=== PATIENT | male | born 1975 | race Caucasian/White ===

== ENCOUNTER 2018-10-14 08:33 | Emergency (ER) | payer OTHER ==
[~2018-10-14] VITALS: Ht 193 cm; Wt 131.1 kg
[2018-10-14 09:25] LABS: BASOPHILS # (AUTO) 0.1 10^3/uL (0.0-0.1); BASOPHILS % (AUTO) 1 % (0-10); EOSINOPHILS # (AUTO) 0.2 10^3/uL (0.0-0.3); EOSINOPHILS % (AUTO) 2 % (0-10); HEMATOCRIT 47 % (40-54); HEMOGLOBIN 16.2 G/DL (13.3-17.7); LYMPHOCYTES # (AUTO) 1.3 X 10^3 (1.0-4.0); LYMPHOCYTES % (AUTO) 12 % (12-44); MEAN CORPUSCULAR HEMOGLOBIN 30 PG (25-34); MEAN CORPUSCULAR HGB CONC 34 G/DL (32-36); MEAN CORPUSCULAR VOLUME 88 FL (80-99); MEAN PLATELET VOLUME 8.6 FL (7.4-10.4); MONOCYTES # (AUTO) 1.2 X 10^3 (0.0-1.0); MONOCYTES % (AUTO) 12 % (0-12); NEUTROPHILS # (AUTO) 7.5 X 10^3 (1.8-7.8); NEUTROPHILS % (AUTO) 73 % (42-75); PLATELET COUNT 279 10^3/uL (130-400); RED BLOOD COUNT 5.37 10^6/uL (4.35-5.85); RED CELL DISTRIBUTION WIDTH 12.3 % (10.0-14.5); WHITE BLOOD COUNT 10.2 10^3/uL (4.3-11.0)
[2018-10-14 09:37] LABS: BILIRUBIN,URINE NEGATIVE (NEGATIVE); CLARITY,URINE CLEAR; COLOR,URINE YELLOW; GLUCOSE, URINE (UA) NEGATIVE (NEGATIVE); KETONES,URINE NEGATIVE (NEGATIVE); LEUKOCYTE ESTERASE ,URINE NEGATIVE (NEGATIVE); NITRITE,URINE NEGATIVE (NEGATIVE); PH,URINE 7 (5-9); PROTEIN,URINE 1+ (NEGATIVE); UROBILINOGEN,URINE NORMAL (NORMAL)
[2018-10-14 09:46] LABS: ALANINE AMINOTRANSFERASE 33 U/L (0-55); ALBUMIN 4.3 GM/DL (3.2-4.5); ALKALINE PHOSPHATASE 67 U/L (40-136); BILIRUBIN,TOTAL 0.5 MG/DL (0.1-1.0); BUN/CREATININE RATIO 14; CALCIUM 9.8 MG/DL (8.5-10.1); CARBON DIOXIDE 27 MMOL/L (21-32); CHLORIDE 102 MMOL/L (98-107); CREATININE SERUM 0.87 MG/DL (0.60-1.30); GFR ESTIMATED > 60; GLUCOSE 105 MG/DL (70-105); SODIUM 139 MMOL/L (135-145)
[2018-10-14 09:47] LABS: BACTERIA,URINE NEGATIVE /HPF; HYALINE CASTS, URINE RARE /LPF; RBC,URINE 0-2 /HPF
--- NOTE | 2018-10-14 09:55 | ED Abdominal Pain ---
General Chief Complaint: Abdominal/GI Problems Stated Complaint: ABD PAIN.INJURED AT WORK. Nursing Triage Note: PT CO OF ABD PAIN STATES STARTED HURTING ON L LOWER ABD AND KNOT APPEARED WHEN PULLING WIRES AT WORK LAST WEEK 10/08 STATES HAS BEEN TAKING MOTRIN FOR PAIN BUT WAS PULLING ON WIRES YESTERDAY STATES FELT POP AND KNOT AT AREA HAD GOTTEN LARGER. PT STATES HAS ALSO HAD FEVERS AT NIGHT AT TIMES Sepsis Screen: No Definite Risk Source of Information: Patient Exam Limitations: No Limitations History of Present Illness Date Seen by Provider: Oct 14, 2018 Time Seen by Provider: 08:50 Initial Comments This 43 mg gentleman presents to the emergency room with complaints of left lower quadrant pain. 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 This was a rather strenuous activity. At that time he felt some pain and later noticed some swelling and a lump protruding in the groin area. He has been taking some ibuprofen at home for the pain. Last night he was climbing a ladder and felt a pop and then extreme pain in the same area. He was experiencing nausea associated with the pain. He also reports having a fever the past 2 nights with night sweats. He notes his temperature at home last night was 101.3 and 101.7. He has been having bowel movements daily but states he feels constipated and bloated. He also had dry heaves in the morning. He denies urinary symptoms except for his urine "felt hot" a couple of days ago. This resolved after drinking lots of water. He denies any extension of the symptoms into the scrotum. He has a small open sore in the left inguinal area distal to the bulge. He states he often gets a rash from chafing. He scratched at rash a couple of days ago causing a sore. He denies any expression of pus or exudate. Dr. Wilson is his primary care provider. Allergies and Home Medications Allergies Coded Allergies: No Known Drug Allergies (Unverified , 10/14/18) Home Medications Ondansetron 4 Mg Tab.rapdis, 4 MG SL Q4H PRN for NAUSEA/VOMITING-1ST LINE Prescribed by: TAMIKO SCRUGGS on 10/14/18 1054 Sulfamethoxazole/Trimethoprim 1 Each Tablet, 1 EACH PO BID Prescribed by: TAMIKO SCRUGGS on 10/14/18 1054 Patient Home Medication List Home Medication List Reviewed: Yes Review of Systems Review of Systems Constitutional: see HPI EENTM: No Symptoms Reported Respiratory: No Symptoms Reported Cardiovascular: No Symptoms Reported Gastrointestinal: See HPI Genitourinary: See HPI Musculoskeletal: no symptoms reported Skin: see HPI Psychiatric/Neurological: No Symptoms Reported Hematologic/Lymphatic: No Symptoms Reported Past Hnvhrmv-Vhphow-Otlvcu Hx Past Med/Social Hx: Reviewed and Corrections made Patient Social History Alcohol Use: Regular Use Number of Drinks Today: 0 Alcohol Beverage of Choice: Beer Recreational Drug Use: No Smoking Status: Former Smoker Recent Foreign Travel: No Contact w/Someone Who Travel: No Recent Infectious Disease Expo: No Recent Hopitalizations: No Physical Abuse: No Sexual Abuse: No Seasonal Allergies Seasonal Allergies: Yes Past Medical History Surgeries: Yes (sebaceous cyst from back) Abdominal (colonoscopy), Adenoidectomy, Tonsillectomy Respiratory: No Cardiac: No Neurological: No Genitourinary: No Gastrointestinal: No Musculoskeletal: No Endocrine: No HEENT: No Cancer: No Psychosocial: No Integumentary: No Blood Disorders: No Physical Exam Vital Signs Vital Signs - First Documented 10/14/18 08:40 Temp 98.9 Pulse 88 B/P (MAP) 140/89 (106) Capillary Refill : Less Than 3 Seconds Height/Weight/BMI Height: 6'4.00" Weight: 289lbs. oz. 131.727298uo; BMI Method:Stated General Appearance: WD/WN, no apparent distress HEENT: PERRL/EOMI, normal ENT inspection Neck: normal inspection Respiratory: lungs clear, normal breath sounds, no respiratory distress, no accessory muscle use Cardiovascular: regular rate, rhythm, no edema, no murmur Gastrointestinal: normal bowel sounds, soft, tenderness (palpation of any location on the abdomen produces pain in left lower quadrant. There is a firm bulge in the left inguinal area that does not change with Valsalva. Does not feel reducible.) Extremities: normal inspection, no pedal edema Neurologic/Psychiatric: events traffic controller II-XII nml as tested, no motor/sensory deficits, alert, normal mood/affect, oriented x 3 Skin: normal color, warm/dry, other (ulcerative lesion in the left groin) Focused Exam Lactate Level 10/14/18 10:45: Lactic Acid Level 0.84 Lactic Acid Level Laboratory Tests Test 10/14/18 10:45 Lactic Acid Level 0.84 MMOL/L (0.50-2.00) Progress/Results/Core Measures Results/Orders Lab Results Laboratory Tests Test 10/14/18 09:15 10/14/18 09:22 10/14/18 10:45 Range/Units White Blood Count 10.2 4.3-11.0 10^3/uL Red Blood Count 5.37 4.35-5.85 10^6/uL Hemoglobin 16.2 13.3-17.7 G/DL Hematocrit 47 40-54 % Mean Corpuscular Volume 88 80-99 FL Mean Corpuscular Hemoglobin 30 25-34 PG Mean Corpuscular Hemoglobin Concent 34 32-36 G/DL Red Cell Distribution Width 12.3 10.0-14.5 % Platelet Count 279 130-400 10^3/uL Mean Platelet Volume 8.6 7.4-10.4 FL Neutrophils (%) (Auto) 73 42-75 % Lymphocytes (%) (Auto) 12 12-44 % Monocytes (%) (Auto) 12 0-12 % Eosinophils (%) (Auto) 2 0-10 % Basophils (%) (Auto) 1 0-10 % Neutrophils # (Auto) 7.5 1.8-7.8 X 10^3 Lymphocytes # (Auto) 1.3 1.0-4.0 X 10^3 Monocytes # (Auto) 1.2 H 0.0-1.0 X 10^3 Eosinophils # (Auto) 0.2 0.0-0.3 10^3/uL Basophils # (Auto) 0.1 0.0-0.1 10^3/uL Sodium Level 139 135-145 MMOL/L Potassium Level 4.0 3.6-5.0 MMOL/L Chloride Level 102 98-107 MMOL/L Carbon Dioxide Level 27 21-32 MMOL/L Anion Gap 10 5-14 MMOL/L Blood Urea Nitrogen 12 7-18 MG/DL Creatinine 0.87 0.60-1.30 MG/DL Estimat Glomerular Filtration Rate > 60 BUN/Creatinine Ratio 14 Glucose Level 105 70-105 MG/DL Calcium Level 9.8 8.5-10.1 MG/DL Corrected Calcium 9.6 8.5-10.1 MG/DL Total Bilirubin 0.5 0.1-1.0 MG/DL Aspartate Amino Transf (AST/SGOT) 24 5-34 U/L Alanine Aminotransferase (ALT/SGPT) 33 0-55 U/L Alkaline Phosphatase 67 40-136 U/L C-Reactive Protein High Sensitivity 2.83 H 0.00-0.50 MG/DL Total Protein 8.0 6.4-8.2 GM/DL Albumin 4.3 3.2-4.5 GM/DL Urine Color YELLOW Urine Clarity CLEAR Urine pH 7 5-9 Urine Specific [place] 1.010 L 1.016-1.022 Urine Protein 1+ H NEGATIVE Urine Glucose (UA) NEGATIVE NEGATIVE Urine Ketones NEGATIVE NEGATIVE Urine Nitrite NEGATIVE NEGATIVE Urine Bilirubin NEGATIVE NEGATIVE Urine Urobilinogen NORMAL NORMAL MG/DL Urine Leukocyte Esterase NEGATIVE NEGATIVE Urine RBC (Auto) 1+ H NEGATIVE Urine RBC 0-2 /HPF Urine WBC NONE /HPF Urine Crystals NONE /LPF Urine Bacteria NEGATIVE /HPF Urine Casts PRESENT /LPF Urine Hyaline Casts RARE /LPF Urine Mucus SMALL H /LPF Urine Culture Indicated NO Lactic Acid Level 0.84 0.50-2.00 MMOL/L My Orders Orders - TAMIKO GALLARDO MD Cbc With Automated Diff (10/14/18 09:05) Comprehensive Metabolic Panel (10/14/18 09:05) Hs C Reactive Protein (10/14/18 09:05) Ua Culture If Indicated (10/14/18 09:05) Saline Lock/Iv-Start (10/14/18 09:05) Us Abdomen Limited [id number] (10/14/18 09:05) Blood Culture (10/14/18 10:43) Lactic Acid Analyzer (10/14/18 10:43) Wound Culture (10/14/18 10:43) Ceftriaxone For Iv Use (Rocephin For I (10/14/18 10:45) Ketorolac Injection (Toradol Injection) (10/14/18 10:45) Medications Given in ED Current Medications Medications Dose Ordered Sig/Goran Route Start Time Stop Time Status Last Admin Dose Admin Ceftriaxone Sodium 1000 mg/ Sodium Chloride 50 ml @ 100 mls/hr ONCE ONCE IV 10/14/18 10:45 10/14/18 11:14 DC 10/14/18 11:00 100 MLS/HR Ketorolac Tromethamine 15 mg ONCE ONCE IVP 10/14/18 10:45 10/14/18 10:46 DC 10/14/18 10:55 15 MG Vital Signs/I&O 10/14/18 08:40 Temp 98.9 Pulse 88 B/P (MAP) 140/89 (106) Blood Pressure Mean: 106 Progress Progress Note : Time: 11:00 Progress Note Ultrasound results were consistent with inguinal lymphadenopathy, possibly reactive from infection. Patient does have an ulcerative sore in the left groin distal to the nodes. This is a likely source of infection. Patient did note a measured fever twice last night. He does not show signs of sepsis in the ER. He has no leukocytosis, fever, or tachycardia, but I am concerned about the fever he had last night. As a precaution we will draw blood cultures and collect a wound culture. Rocephin will be given prior to discharge and he will be placed on Bactrim for outpatient therapy. Return precautions are being given and follow-up with Dr. Wilson is advised. Toradol was given for pain control. He was advised not to return to work today due to fever last night. Diagnostic Imaging Diagonstic Imaging: Ultrasound Plain Films/CT/US/NM/MRI: abdomen Comments Ultrasound images viewed by me and report reviewed. Discussed with wildlife technician. See report below: NAME: CALLIE JASSO [facility] REC#: [id number] PT STATUS: REG ER : 1975 PHYSICIAN: TAMIKO GALLARDO MD ADMIT DATE: 10/14/18/ER Draft Date of Exam:10/14/18 US ABDOMEN LIMITED [id number] Exam: Ultrasound abdomen limited. Date: October 14, 2018. Indication: 43-year-old male, left groin pain for one week. Comparison: None available. Findings: Targeted ultrasound of the left inguinal region was performed. There are several hypoechoic probable left inguinal lymph nodes which measure approximately 1.9 x 2.2 x 1.3 cm in size, 2.0 x 2.4 x 1.2 cm in size, and 1.4 x 1.7 x 1.1 cm in size. There is abnormal cortical thickening of some of the lymph nodes without normal lymph node morphology of the inguinal lymph nodes. Impression: 1. Several probable left inguinal lymph nodes which do not demonstrate normal lymph node morphology. Further correlation for cause is recommended. This could be secondary to infection or inflammatory process or malignancy. Dictated on workstation # [id number] Dict: 10/14/18 1022 Trans: 10/14/18 1027 [facility] [id number] Interpreted by: LIVIA MORENO MD Departure Impression Primary Impression: Inguinal lymphadenopathy Additional Impressions: Abdominal pain Qualified Codes: R10.32 - Left lower quadrant pain History of fever Nausea Disposition: 01 HOME, SELF-CARE Condition: Improved Departure-Patient Inst. Decision time for Depature: 10:50 Referrals: HARRISON WILSON MD (PCP/Family) Primary Care Physician Patient Instructions: Acute Abdomen (Belly Pain), Adult (DC), LYMPH NODE INFECTION Add. Discharge Instructions: Complete your antibiotics as prescribed. For pain you may take ibuprofen up to 600 mg every 6 hours as needed. Add Tylenol (acetaminophen) up to 1000 mg every 6 hours as needed for additional pain relief. Follow-up with your primary care provider within one week. Please call today to make an appointment. You should review your culture results with your doctor. Culture results should be available by the afternoon of October 16. Return to the emergency room if you have worsening symptoms, especially if you have recurrent fevers over 100.3 despite treatment. Drink plenty of clear liquids. Use Zofran (ondansetron) as prescribed for nausea and vomiting. All discharge instructions reviewed with patient and/or family. Voiced understanding. Scripts Ondansetron (Ondansetron Odt) 4 Mg Tab.rapdis 4 MG SL Q4H PRN for NAUSEA/VOMITING-1ST LINE, #10 TAB Prov: TAMIKO GALLADRO MD 10/14/18 Sulfamethoxazole/Trimethoprim (Bactrim Ds Tablet) 1 Each Tablet 1 EACH PO BID, #20 TAB Prov: TAMIKO GALLARDO MD 10/14/18 Copy Copies To 1: HARRISON WILSON MD, JOSHUA T MD Oct 14, 2018 09:55
--- NOTE | 2018-10-14 10:28 | Diagnostic Imaging Report ---
Exam: Ultrasound abdomen limited. Date: October 14, 2018. Indication: 43-year-old male, left groin pain for one week. Comparison: None available. Findings: Targeted ultrasound of the left inguinal region was performed. There are several hypoechoic probable left inguinal lymph nodes which measure approximately 1.9 x 2.2 x 1.3 cm in size, 2.0 x 2.4 x 1.2 cm in size, and 1.4 x 1.7 x 1.1 cm in size. There is abnormal cortical thickening of some of the lymph nodes without normal lymph node morphology of the inguinal lymph nodes. Impression: 1. Several probable left inguinal lymph nodes which do not demonstrate normal lymph node morphology. Further correlation for cause is recommended. This could be secondary to infection or inflammatory process or malignancy. Dictated by: Dictated on workstation # [id number]
[2018-10-14] MEDS ORDERED: SULF1TAB35 PO (10:54)
[2018-10-14] MEDS ORDERED: ONDA4TAB11 SL (10:54)
[2018-10-14] MEDS: KETOROLAC 30 MG/ML VIAL IVP ONE (10:55)
[2018-10-14] MEDS: cefTRIAXone FOR IV USE 1,000 MG in NS (IVPB) 50 ML IV ONE (11:00)
[2018-10-14 11:22] VITALS: BP 140/89
== END 2018-10-14 11:22 | disposition home or self-care (01) ==
LOC: ER 08:36
DX: R59.0 Localized enlarged lymph nodes (principal); R10.32 Left lower quadrant pain; R11.0 Nausea; Z87.891 Personal history of nicotine dependence; Z90.89 Acquired absence of other organs
CPT/HCPCS: 36415; 76705; 80053; 81000; 83605; 85025; 86141; 87040; 87070; 87077; 87205

== ENCOUNTER 2022-02-17 11:41 | Emergency (ER) | payer BC, OTHER ==
[~2022-02-17] VITALS: Ht 193 cm; Wt 112.0 kg
[~2022-02-17 11:41] MED LIST: ONDA4TAB11 SL; SULF1TAB38 PO
--- NOTE | 2022-02-17 11:45 | ED Headache ---
General Stated Complaint: MIGRAINE, JAW PAIN History of Present Illness Date Seen by Provider: Feb 17, 2022 Time Seen by Provider: 11:44 Initial Comments 47-year-old male presents with a headache. He reports that started yesterday. Is located on the left lateral aspect of his neck and radiates over over his left eye. It is worse with any type of movement of his neck. He also complains of a little bit of pain in his jaw but is unsure if this related. He also reports that for the last month he has been getting occasional episodes of a little bit of blurry vision. But is not complaining that at this time. He has some mild nausea no vomiting. He denies any acute injury. He did have a recent illness but is not having any respiratory or illness type symptoms at this time. Allergies and Home Medications Allergies Coded Allergies: No Known Drug Allergies (Unverified , 10/14/18) Patient Home Medication List Home Medication List Reviewed: Yes Ondansetron (Ondansetron Odt) 4 Mg Tab.rapdis, 4 MG SL Q4H PRN for NAUSEA/VOMITING-1ST LINE Prescribed by: TAMIKO SCRUGGS on 10/14/18 1054 Sulfamethoxazole/Trimethoprim (Bactrim Ds Tablet) 1 Each Tablet, 1 EACH PO BID Prescribed by: TAMIKO SCRUGGS on 10/14/18 1054 Review of Systems Review of Systems Constitutional: No chills, No fever Eyes: See HPI Ears, Nose, Mouth, Throat: see HPI Respiratory: no symptoms reported Cardiovascular: no symptoms reported Gastrointestinal: no symptoms reported Genitourinary: no symptoms reported Musculoskeletal: see HPI Skin: no symptoms reported Psychiatric/Neurological: No Symptoms Reported Past Natuqeb-Coodgm-Dffnik Hx Seasonal Allergies Seasonal Allergies: Yes Past Medical History Surgeries: Yes (sebaceous cyst from back) Abdominal, Adenoidectomy, Tonsillectomy Respiratory: No Cardiac: No Neurological: No Genitourinary: No Gastrointestinal: No Musculoskeletal: No Endocrine: No HEENT: No Cancer: No Psychosocial: No Integumentary: No Blood Disorders: No Physical Exam Vital Signs Vital Signs - First Documented 02/17/22 11:57 Temp 36.4 Pulse 117 Resp 16 B/P (MAP) 153/108 (123) Pulse Ox 97 O2 Delivery Room Air Capillary Refill : Height, Weight, BMI Height: 6'4.00" Weight: 289lbs. oz. 131.380873cx; BMI Method:Stated General Appearance: WD/WN, no apparent distress HEENT: PERRL/EOMI, normal ENT inspection, TMs normal, pharynx normal Neck: tender lateral (Left lateral paraspinal reproducible) Cardiovascular: normal peripheral pulses, regular rate, rhythm Respiratory: lungs clear, normal breath sounds Gastrointestinal: non tender, soft Extremities: normal range of motion, non-tender, normal inspection Psychiatric: alert, oriented x 3 Crainal Nerves: normal hearing, normal speech, PERRL; No facial weakness Coordination/Gait: normal gait Motor/Sensory: no motor deficit, no sensory deficit, no pronator drift Skin: normal color, warm/dry Progress/Results/Core Measures Results/Orders My Orders Orders - JEREMI RAMIREZ DO Ketorolac Injection (Toradol Injection) (02/17/22 11:51) Orphenadrine Inj (Ed Only) (Norflex Inje (02/17/22 11:51) Ondansetron Oral Dissolve Tab (Zofran (02/17/22 11:51) Ct Head Wo (02/17/22 11:52) Vital Signs/I&O 02/17/22 11:57 Temp 36.4 Pulse 117 Resp 16 B/P (MAP) 153/108 (123) Pulse Ox 97 O2 Delivery Room Air Progress Progress Note : Progress Note Patient symptoms are very consistent with a tension headache/cervical strain v ersus typical migraine. Patient symptoms did improve with Norflex Toradol. I will prescribe him muscle relaxant. Can use Tylenol ibuprofen. Also discussed with him topical medication such as lidocaine and Voltaren cream. Also she use warm moist heat. If symptoms not improved in 3 to 4 days she follow-up with her primary care provider for recheck of his symptoms. Patient CT shows no acute findings and there is no acute neurologic findings on exam Departure Impression Primary Impression: Tension type headache Qualified Codes: G44.209 - Tension-type headache, unspecified, not intractable Disposition: 01 HOME, SELF-CARE Condition: Stable Departure-Patient Inst. Referrals: SELF,HARRISON SAENZ (PCP/Family) Primary Care Physician Patient Instructions: Torticollis (DC), Headache, Adult (DC) Add. Discharge Instructions: Warm moist heat to the back of your neck for 20 minutes, 3-4 times daily 4% topical lidocaine with menthol use as directed on pack Voltaren/diclofenac cream, use as directed on pack Tylenol or ibuprofen as needed. Follow-up with your primary care provider in 1 week if symptoms or not improving Scripts Cyclobenzaprine HCl (Cyclobenzaprine HCl) 10 Mg Tablet 10 MG PO Q8H PRN for SPASMS, #15 TAB 0 Refills Prov: JEREMI RAMIREZ DO 02/17/22 JEREMI RAMIREZ DO Feb 17, 2022 11:45
[2022-02-17] MEDS ORDERED: ORPHENADRINE 60 MG/2 ML (NORFLEX) AMP (ED ONLY) IM STA (11:51)
[2022-02-17] MEDS ORDERED: KETOROLAC 30 MG/ML VIAL IM STA (11:51)
[2022-02-17] MEDS ORDERED: ONDANSETRON 4 MG (ZOFRAN) ORAL DISSOLVE TAB SL STA (11:51)
[2022-02-17 11:57] VITALS: BP 153/108
--- NOTE | 2022-02-17 12:27 | Diagnostic Imaging Report ---
PROCEDURE: CT head without contrast, 02/17/2022. TECHNIQUE: Multiple contiguous axial images were obtained through the brain without the use of intravenous contrast. Auto Exposure Controls were utilized during the CT exam to meet ALARA standards for radiation dose reduction. INDICATION: Headache, blurry vision FINDINGS: There is no hemorrhage or infarct. No mass, mass effect or midline shift. No hydrocephalus. Calvarium is intact. Paranasal sinuses demonstrate mucosal thickening and retention polyp or cyst. Mastoid air cells clear. IMPRESSION: 1. Sinus disease, as above, with no acute intracranial process. Dictated by: Dictated on workstation # [id number]
[2022-02-17] MEDS ORDERED: CYCL10TA25 PO (12:40)
== END 2022-02-17 12:48 | disposition home or self-care (01) ==
LOC: EDUNIT# 11:41 → ER FS 11:42
DX: G44.209 Tension-type headache, unspecified, not intractable (principal)
CPT/HCPCS: 70450

== ENCOUNTER 2023-01-17 07:41 | Day surgery (SDC) | payer BC, MEDICAID ==
[~2023-01-17] VITALS: Ht 193 cm; Wt 114.3 kg
[~2023-01-17 07:41] MED LIST changes: +CYCL10TA25 PO
[2023-01-17] MEDS ORDERED: ASPIRIN 81 MG CHEW (CHILDREN'S ASA) PO ONE (08:00)
[2023-01-17] MEDS ORDERED: NITROGLYCERIN 0.4 MG SL TABS BTL 25'S SL PRN ×2 (08:00→13:00)
[2023-01-17] MEDS ORDERED: morphine INJ 10 MG/ML 1ML (SYR OR VIAL) IVP ONE (08:00)
[2023-01-17 08:06] LABS: BASOPHILS # (AUTO) 0.1 10^3/uL (0.0-0.1); BASOPHILS % (AUTO) 1 % (0-10); EOSINOPHILS # (AUTO) 0.4 10^3/uL (0.0-0.3); EOSINOPHILS % (AUTO) 4 % (0-10); HEMATOCRIT 51 % (40-54); HEMOGLOBIN 17.4 g/dL (13.3-17.7); LYMPHOCYTES # (AUTO) 2.5 10^3/uL (1.0-4.0); LYMPHOCYTES % (AUTO) 25 % (12-44); MEAN CORPUSCULAR HEMOGLOBIN 30 pg (25-34); MEAN CORPUSCULAR HGB CONC 34 g/dL (32-36); MEAN CORPUSCULAR VOLUME 89 fL (80-99); MEAN PLATELET VOLUME 8.6 fL (9.0-12.2); MONOCYTES # (AUTO) 0.9 10^3/uL (0.0-1.0); MONOCYTES % (AUTO) 9 % (0-12); NEUTROPHILS # (AUTO) 6.1 10^3/uL (1.8-7.8); NEUTROPHILS % (AUTO) 61 % (42-75); PLATELET COUNT 293 10^3/uL (130-400)
--- NOTE | 2023-01-17 08:29 | ED Chest Pain ---
General Chief Complaint: Chest Pain Stated Complaint: CHEST PAIN; SOB Source: patient, spouse Exam Limitations: other (pain) History of Present Illness Date Seen by Provider: Jan 17, 2023 Time Seen by Provider: 07:45 Initial Comments 47-year-old male presenting with complaints of intermittent chest pain for the last 2 or 3 days. This morning when he woke up at 7 AM he was having pressure like somebody was sitting on his chest and it was radiating to his left armpit. This pain has been constant since around 7 AM. He rates his pain at 6 or 7 out of 10. He feels like the pain is worse when he tries to sit up and move or take a deep breath. He has had nausea but no vomiting. He denies any injury or event that triggered his symptoms a few days ago. He denies having a history of heart disease or heart problems. He reports that his father had heart disease and had a heart attack at around the age of 60. He has not tried taking anything for his pain or symptoms. patient appears anxious and tearful at times. He reports he almost passed out trying to get into the vehicle to come here and be seen. Timing/Duration: intermittent, 2-3 days Severity/Quality: moderate, pressure Location: other (left chest radiating into left axilla) Radiation: arms (left axilla) Activities at Onset: sleep (this morning his symptoms came on while asleep and woke him up at 7 am) Prior CP/Workup: no prior chest pain, no prior cardiac workup Modifying Factors: worse with exercise (activity makes it worse as well as deep breaths) ASA po [employer]ENTER OFFICER: No NTG SL [employer] CENTER OFFICER: No Associated Symptoms: No abdominal pain, No back pain, No diaphoresis; dizziness; No edema, No fever/chills, No headache, No heartburn; nausea/vomiting (nausea but no emesis); No rash, No shortness of breath, No swelling/lump in chest, No syncope, No weakness Allergies and Home Medications Allergies Coded Allergies: No Known Drug Allergies (Unverified , 10/14/18) Patient Home Medication List Home Medication List Reviewed: Yes Discontinued Medications Cyclobenzaprine HCl (Cyclobenzaprine HCl) 10 Mg Tablet, 10 MG PO Q8H PRN for SPASMS Prescribed by: JEREMI RAMIREZ on 02/17/22 1240 Last Action: Discontinued Ondansetron (Ondansetron Odt) 4 Mg Tab.rapdis, 4 MG SL Q4H PRN for NAUSEA/VOMITING-1ST LINE Prescribed by: TAMIKO SCRUGGS on 10/14/18 105 Last Action: Discontinued Sulfamethoxazole/Trimethoprim (Bactrim Ds Tablet) 1 Each Tablet, 1 EACH PO BID Prescribed by: TAMIKO SCRUGGS on 10/14/18 105 Last Action: Discontinued Review of Systems Review of Systems Constitutional: see HPI; No chills, No fever EENTM: No Symptoms Reported Respiratory: Denies Shortness of Air Cardiovascular: See HPI Gastrointestinal: See HPI Genitourinary: No Symptoms Reported Musculoskeletal: no symptoms reported Skin: no symptoms reported Psychiatric/Neurological: Anxiety Endocrine: No Symptoms Reported Hematologic/Lymphatic: Denies Blood Clots Past Nfculzf-Asmckx-Gfqrle Hx Patient Social History Tobacco Use?: No Use of E-Cig and/or Vaping dev: No Substance use?: No Seasonal Allergies Seasonal Allergies: Yes Past Medical History Surgery/Hospitalization HX: 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 oz. 131.467798ae; 30.00 BMI Method:Stated General Appearance: Anxious, Moderate Distress HEENT: PERRL/EOMI, Pharynx Normal Neck: Full Range of Motion, Normal Inspection, Non Tender, Supple Respiratory: Chest Non Tender, Lungs Clear, Normal Breath Sounds, No Accessory Muscle Use, No Respiratory Distress Cardiovascular: Regular Rate, Rhythm, No Murmur, Normal Peripheral Pulses Gastrointestinal: Normal Bowel Sounds, Non Tender, Soft Rectal: Deferred Extremity: Normal Capillary Refill, Normal Inspection, No Calf Tenderness, No Pedal Edema Neurologic/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, Oriented x3, hand cutter II-XII Norm as Tested Skin: Normal Color, Warm/Dry Progress/Results/Core Measures Results/Orders Lab Results Laboratory Tests Test 01/17/23 07:54 01/17/23 10:00 Range/Units White Blood Count 10.0 4.3-11.0 10^3/uL Red Blood Count 5.73 H 4.30-5.52 10^6/uL Hemoglobin 17.4 13.3-17.7 g/dL Hematocrit 51 40-54 % Mean Corpuscular Volume 89 80-99 fL Mean Corpuscular Hemoglobin 30 25-34 pg Mean Corpuscular Hemoglobin Concent 34 32-36 g/dL Red Cell Distribution Width 11.7 10.0-14.5 % Platelet Count 293 130-400 10^3/uL Mean Platelet Volume 8.6 L 9.0-12.2 fL Immature Granulocyte % (Auto) 0 % Neutrophils (%) (Auto) 61 42-75 % Lymphocytes (%) (Auto) 25 12-44 % Monocytes (%) (Auto) 9 0-12 % Eosinophils (%) (Auto) 4 0-10 % Basophils (%) (Auto) 1 0-10 % Neutrophils # (Auto) 6.1 1.8-7.8 10^3/uL Lymphocytes # (Auto) 2.5 1.0-4.0 10^3/uL Monocytes # (Auto) 0.9 0.0-1.0 10^3/uL Eosinophils # (Auto) 0.4 H 0.0-0.3 10^3/uL Basophils # (Auto) 0.1 0.0-0.1 10^3/uL Immature Granulocyte # (Auto) 0.0 0.0-0.1 10^3/uL Prothrombin Time 13.2 12.2-14.7 SEC INR Comment 1.0 0.8-1.4 Activated Partial Thromboplast Time 30 24-35 SEC D-Dimer 0.28 0.00-0.49 UG/ML Sodium Level 137 135-145 MMOL/L Potassium Level 3.9 3.6-5.0 MMOL/L Chloride Level 100 98-107 MMOL/L Carbon Dioxide Level 25 21-32 MMOL/L Anion Gap 12 5-14 MMOL/L Blood Urea Nitrogen 14 7-18 MG/DL Creatinine 1.02 0.60-1.30 MG/DL Estimat Glomerular Filtration Rate 90 BUN/Creatinine Ratio 14 Glucose Level 109 H 70-105 MG/DL Calcium Level 9.5 8.5-10.1 MG/DL Corrected Calcium 9.3 8.5-10.1 MG/DL Magnesium Level 1.9 1.6-2.4 MG/DL Total Bilirubin 0.5 0.1-1.0 MG/DL Aspartate Amino Transf (AST/SGOT) 36 H 5-34 U/L Alanine Aminotransferase (ALT/SGPT) 58 H 0-55 U/L Alkaline Phosphatase 96 40-136 U/L Myoglobin < 21.0 <72.0 NG/ML Troponin I < 0.30 < 0.30 <0.30 NG/ML Pro-B-Type Natriuretic Peptide 36.1 <125.0 PG/ML Total Protein 7.5 6.4-8.2 GM/DL Albumin 4.3 3.2-4.5 GM/DL Lipase 21 8-78 U/L My Orders Orders - PIYUSH REYES MD Cbc With Automated Diff (01/17/23 07:54) Magnesium (01/17/23 07:54) Chest 1 View Ap/Pa Only (01/17/23 07:54) Ekg Tracing (01/17/23 07:54) Comprehensive Metabolic Panel (01/17/23 07:54) Myoglobin Serum (01/17/23 07:54) Protime With Inr (01/17/23 07:54) Partial Thromboplastin Time (01/17/23 07:54) O2 (01/17/23 07:54) Monitor-Rhythm Ecg Trace Only (01/17/23 07:54) Aspirin Chewable Tablet (Baby Aspirin Ch (01/17/23 08:00) Nitroglycerin 0.4 Mg Btl 25's (Nitrostat (01/17/23 08:00) Ed Iv/Invasive Line Start (01/17/23 07:54) Lipase (01/17/23 07:54) Troponin I Fs (01/17/23 07:54) Probnp Fs (01/17/23 07:54) Morphine Injection (Morphine Injection (01/17/23 08:00) Fibrin Degradation Products (01/17/23 07:54) Fentanyl Inj (Sublimaze Injection) (01/17/23 09:02) Ondansetron Injection (Zofran Injectio (01/17/23 09:02) Ketorolac Injection (Toradol Injection) (01/17/23 09:02) Ct Angio Chest W (01/17/23 09:02) Pantoprazole Injection (Protonix Injecti (01/17/23 09:02) Iohexol Injection (Omnipaque 350 Mg/Ml 1 (01/17/23 09:15) Received Contrast (Hold Metformin- Contr (01/17/23 09:15) Sodium Chloride Flush (Catheter Flush Sy (01/17/23 09:15) Ns (Ivpb) (Sodium Chloride 0.9% Ivpb Bag (01/17/23 09:15) Troponin I Fs (01/17/23 09:47) Fentanyl Inj (Sublimaze Injection) (01/17/23 10:38) Lorazepam Injection (Ativan Injection) (01/17/23 10:38) Ed Admission (Communication) (01/17/23 10:51) Medications Given in ED Current Medications Medications Dose Ordered Sig/Goran Route Start Time Stop Time Status Last Admin Dose Admin Aspirin 324 mg ONCE ONCE PO 01/17/23 08:00 01/17/23 08:01 DC 01/17/23 08:02 324 MG Iohexol 100 ml ONCE ONCE IV 01/17/23 09:15 01/17/23 09:16 DC 01/17/23 09:21 100 ML Morphine Sulfate 2 mg ONCE ONCE IVP 01/17/23 08:00 01/17/23 08:01 DC 01/17/23 08:03 2 MG Nitroglycerin 0.4 mg UD PRN SL 01/17/23 08:00 01/17/23 08:13 0.4 MG Sodium Chloride 100 ml ONCE ONCE IV 01/17/23 09:15 01/17/23 09:16 DC 01/17/23 09:21 100 ML Vital Signs/I&O 01/17/23 07:45 Temp 36.5 Pulse 98 Resp 12 B/P (MAP) 158/98 (118) O2 Delivery Room Air Progress Progress Note #1: Progress Note Potential life-threatening diagnosis of myocardial infarction, pulmonary embolism, pneumonia, dissecting thoracic aortic aneurysm, pneumonia, heart failure. Obtain peripheral IV access and obtain blood work for a complete blood count, comprehensive metabolic profile, cardiac enzymes, clotting factors, D-dimer. Placed on cardiac night monitor to watch his heart rate and rhythm. My initial interpretation of his cardiac telemetry shows normal sinus rhythm with a heart rate in the 90s. He does not have ST elevation or ectopy showing on the monitor. Obtain electrocardiogram for more formal evaluation of his heart. My initial interpretation of his electrocardiogram showed a normal sinus rhythm without ST elevation or ischemic changes. There is no prior tracing available for comparison. Order chest x-ray looking for structural abnormalities or physical findings that could be contributing to his symptoms. Order aspirin 324 mg p.o. x1, morphine 2 mg IV x1 for chest pain, Zofran 4 mg IV for nausea, sublingual nitroglycerin 0.4 mg for chest pain. After ordering the nitroglycerin, patient and spouse told the nurse that he had used Viagra 2-3 days ago and they were concerned about interaction between Viagra and Nitroglycerin. I advised the nurse that since he has had more than 24 hours since he used the Viagra it should be out of his system and not interacting with nitroglycerin. I felt is was safe to administer the medicine to see if it helped with his pain and symptoms. Progress Note #2: Time: 08:28 Progress Note My personal interpretation and review of the 1 view chest x-ray shows no acute process. I did not appreciate an infiltrate, widened mediastinum, pleural effusion, cardiomegaly. Complete blood count showed his white blood cells were not elevated to indicate an infection. Has hemoglobin was 17.4 and not showing signs of anemia. His comprehensive metabolic profile did not show acute significant abnormality to account for his symptoms. He had a troponin that was less than 0.3 to help discount a diagnosis of myocardial infarction or cardiac ischemia. He had a myoglobin that was less than 21 which again would help to count against myocardial source for his pain. Especially considering intermittent pain for the last 2 to 3 days and then having constant pain since 7 AM. Awaiting coagulation factors and D-dimer to help screen for coagulopathy and possible DVT or pulmonary embolism. Progress Note #3: Time: 08:44 Progress Note Coagulation factors were elevated to indicate a coagulopathy. His D-dimer was negative as a screening test looking for DVT or PE as it was 0.28 and not elevated over 0.5. Will recheck on patient and see if any of the treatments so far have made any difference on his pain and symptoms. On recheck of the patient he reports the pain was still present and was worse still with deep breaths. He asked if there was anything else he could get for pain. Will order Fentanyl 50 mcg IV for pain, Toradol 15 mg IV for pain/inflammation, Zofran 4 mg IV for nausea, Pantoprazole 40 mg IV for possible gastritis. Add on CT angiography of chest to evaluate for possible structural pathology to cause his symptoms. While the negative D dimer has helped to screen for DVT/PE and it was negative, the CT angiography of chest will help evaluate for PE, Aorta dissection, infiltrate not seen on CXR. Will repeat Troponin at 2 hours to see if there is any change in his lab value from the initial <0.3 negative Troponin. Progress Note #4: Time: 09:47 Progress Note Patient reports mild improvement in his symptoms with the repeated pain medicine and Ativan. He states that as symptoms are only improved for very short time and then come back again. He states they have never completely gone away. Reassured patient that his test results were not showing any signs of acute heart attack, pulmonary embolism in his chest, pneumonia, aortic aneurysm or dissection. He was still complaining of pain so the repeat troponin was ordered and will discuss with Dr. Jasso, the on-call hospitalist for [facility] for Dr. Wilson. 1047 Repeat troponin still negative at <0.3. Reassured pt that his tests were not showing pulmonary embolism, aortic dissection or aneurysm, myocardial infarction, structural abnormality or pneumonia. Since he was still having pain I discussed this case with Dr. Cannon, the on-call hospitalist for [facility] for Dr. Wilson. She accepted the patient for an observation admission after I reviewed his presentation as well as his labs which included negative troponin x2 and negative chest x-ray and CT angiography scan of the chest. Will admit as an observation patient and possibly consult cardiology for his chest pains. Initial ECG Impression Date: Jan 17, 2023 Initial ECG Impression Time: 07:47 Initial ECG Rate: 96 Initial ECG Rhythm: Normal Sinus Initial ECG Comparisson: No Previous ECG Available Comment My initial interpretation of the electrocardiogram shows sinus rhythm with a heart rate of [address] elevation. NC interval 165 ms. QT interval 362 ms with a QTc interval 415 ms. There is no prior tracing available for comparison. Diagnostic Imaging Diagonstic Imaging: Xray Plain Films/CT/US/NM/MRI: chest Comments [facility]. [place], [place] NAME: CALLIE JASSO [facility] REC#: [id number] PT STATUS: REG ER : 1975 PHYSICIAN: PIYUSH REYES MD ADMIT DATE: 01/17/23/ER FS Draft Date of Exam:01/17/23 CHEST 1 VIEW AP/PA ONLY INDICATION: Chest pain, FINDINGS: No priors Lungs clear. No failure, effusion or pneumothorax. Impression: Normal frontal chest. Dictated on workstation # [id number] Dict: 01/17/23831 Trans: 01/17/23832 [facility] [id number] Interpreted by: GAVIN MITCHELL Electronically signed by: Reviewed: Reviewed by Me (I reviewed radiologist results at 0838) Diagonstic Imaging: CT (angiography) Plain Films/CT/US/NM/MRI: chest Comments NAME: CALLIE JASSO [facility] REC#: [id number] PT STATUS: REG ER : 1975 PHYSICIAN: PIYUSH REYES MD ADMIT DATE: 01/17/23/ER FS Draft Date of Exam:01/17/23 CT ANGIO CHEST W PROCEDURE: CT angiography of the chest with contrast. TECHNIQUE: Multiple contiguous axial images were obtained through the chest after uneventful bolus administration of intravenous contrast. 3D reconstructed CTA MIP acquisitions were also performed. Auto Exposure Controls were utilized during the CT exam to meet ALARA standards for radiation dose reduction. INDICATION: Chest pain. I have no relevant comparison. FINDINGS: There are no intraluminal pulmonary arterial filling defects. There are no findings of pulmonary arterial embolic disease. Thoracic aorta patent and nonaneurysmal and nonacute. No pleural or pericardial hemorrhage or effusion. Lungs clear and well expanded. No edema or pneumonia. No lung mass. No thoracic adenopathy. No acute or suspicious soft tissue or osseous chest wall pathology. There is no axillary, hilar or mediastinal lymphadenopathy. The visible upper abdominal structures appeared unremarkable. IMPRESSION: Negative for PE or other acute abnormalities. Dictated on workstation # [id number] Dict: 01/17/23 0935 Trans: 01/17/23 0938 [id number] Interpreted by: GAVIN MITCHELL Electronically signed by: Reviewed: Reviewed by Me (I reviewed radiologist report at 0947) Departure Communication (Admissions) Time/Spoke to Admitting Phy: 10:[address] Jasso and reviewed the patient's presentation as well as his labs which included troponin negative x2 as well as a CT angiography of the chest which was not showing any acute pulmonary embolism or aortic dissection. He continues to have pain despite multiple medications including aspirin, morphine, nitroglycerin, Toradol, fentanyl, Protonix, repeated dose of fentanyl as well as Ativan. She accepted the patient for an observation stay and possible cardiology consult. Impression Primary Impression: Pleuritic chest pain Additional Impression: Atypical chest pain Disposition: 30 STILL A PATIENT Condition: Stable Admissions Decision to Admit Reason: Admit from ER (General) Decision to Admit/Date: Jan 17, 2023 Time/Decision to Admit Time: 10:47 Departure-Patient Inst. Referrals: HARRISON WILSON MD (PCP) Primary Care Physician PIYUSH REYES MD Jan 17, 2023 08:29
[2023-01-17 08:34] LABS: POTASSIUM 3.9 MMOL/L (3.6-5.0); SODIUM 137 MMOL/L (135-145)
--- NOTE | 2023-01-17 08:34 | Diagnostic Imaging Report ---
INDICATION: Chest pain, FINDINGS: No priors Lungs clear. No failure, effusion or pneumothorax. Impression: Normal frontal chest. Dictated by: Dictated on workstation # [id number]
[2023-01-17 08:35] LABS: BILIRUBIN,TOTAL 0.5 MG/DL (0.1-1.0); BUN/CREATININE RATIO 14; CALCIUM 9.5 MG/DL (8.5-10.1); CARBON DIOXIDE 25 MMOL/L (21-32); CHLORIDE 100 MMOL/L (98-107); CREATININE SERUM 1.02 MG/DL (0.60-1.30); GFR ESTIMATED 90; GLUCOSE 109 MG/DL (70-105); MAGNESIUM 1.9 MG/DL (1.6-2.4)
[2023-01-17 08:36] LABS: ALANINE AMINOTRANSFERASE 58 U/L (0-55); ALKALINE PHOSPHATASE 96 U/L (40-136)
[2023-01-17 08:37] LABS: ALBUMIN 4.3 GM/DL (3.2-4.5); LIPASE 21 U/L (8-78); TOTAL PROTEIN 7.5 GM/DL (6.4-8.2)
[2023-01-17 08:38] LABS: FIBRIN DEGRADATION PRODUCTS 0.28 UG/ML (0.00-0.49); PROTHROMBIN TIME PATIENT 13.2 SEC (12.2-14.7)
[2023-01-17] MEDS ORDERED: KETOROLAC 15 MG/ML VIAL IVP STA (09:02)
[2023-01-17] MEDS ORDERED: ONDANSETRON 4 MG/2 ML (SDV) Z0FRAN IVP STA (09:02)
[2023-01-17] MEDS ORDERED: PANTOPRAZOLE 40 MG (PROTONIX) VIAL IV STA (09:02)
[2023-01-17] MEDS ORDERED: fentaNYL INJ 100 MCG/2 ML AMP IVP STA ×2 (09:02→10:38)
[2023-01-17] MEDS ORDERED: NS 100 ML (IVPB) BAG IV ONE (09:15)
[2023-01-17] MEDS ORDERED: CATHETER FLUSH 10 ML SYR IV PRN (09:15)
[2023-01-17] MEDS ORDERED: HOLD METFORMIN - RECEIVED CONTRAST 20 ML VIAL IV SCH (09:15)
[2023-01-17] MEDS ORDERED: IOHEXOL 350 MG/ML 100 ML (OMNIPAQUE 350) VIAL IV ONE (09:15)
--- NOTE | 2023-01-17 09:38 | Diagnostic Imaging Report ---
PROCEDURE: CT angiography of the chest with contrast. TECHNIQUE: Multiple contiguous axial images were obtained through the chest after uneventful bolus administration of intravenous contrast. 3D reconstructed CTA MIP acquisitions were also performed. Auto Exposure Controls were utilized during the CT exam to meet ALARA standards for radiation dose reduction. INDICATION: Chest pain. I have no relevant comparison. FINDINGS: There are no intraluminal pulmonary arterial filling defects. There are no findings of pulmonary arterial embolic disease. Thoracic aorta patent and nonaneurysmal and nonacute. No pleural or pericardial hemorrhage or effusion. Lungs clear and well expanded. No edema or pneumonia. No lung mass. No thoracic adenopathy. No acute or suspicious soft tissue or osseous chest wall pathology. There is no axillary, hilar or mediastinal lymphadenopathy. The visible upper abdominal structures appeared unremarkable. IMPRESSION: Negative for PE or other acute abnormalities. Dictated by: Dictated on workstation # [id number]
[2023-01-17] MEDS ORDERED: LORazepam INJ 2 MG/ML (ATIVAN) VIAL IVP STA (10:38)
[2023-01-17 12:48] VITALS: BP 148/83
[2023-01-17] MEDS ORDERED: diphenhydrAMINE 50 MG/ML INJ (BENADRYL) IVP PRN (13:00)
[2023-01-17] MEDS ORDERED: BISACODYL 10 MG SUPP (DULCOLAX) PR PRN (13:00)
[2023-01-17] MEDS ORDERED: polyethylene glycoL POWDER 17 GM (MIRALAX) PACK PO PRN (13:00)
[2023-01-17] MEDS ORDERED: ALPRAZolam 0.5 MG (XANAX) TAB PO PRN (13:00)
[2023-01-17] MEDS ORDERED: PATIENT MAY USE OWN MEDS, ALL PO SCH (13:00)
[2023-01-17] MEDS ORDERED: ONDANSETRON 4 MG (ZOFRAN) ORAL DISSOLVE TAB PO PRN (13:00)
[2023-01-17] MEDS ORDERED: ENOXAPARIN 40 MG/0.4 ML (LOVENOX) SYR SC SCH (13:00)
[2023-01-17] MEDS ORDERED: ACETAMINOPHEN 325 MG TABLET PO PRN (13:00)
[2023-01-17] MEDS ORDERED: ANTACID SUSP 30 ML UDC (MYLANTA) PO PRN (13:00)
[2023-01-17] MEDS ORDERED: diphenhydrAMINE 25 MG TAB (BENADRYL) PO PRN (13:00)
[2023-01-17] MEDS ORDERED: MELATONIN 3 MG TABLET PO PRN (13:00)
[2023-01-17] MEDS ORDERED: ONDANSETRON 4 MG/2 ML (SDV) Z0FRAN IV PRN (13:00)
[2023-01-17 13:25] VITALS: BP 149/89
[2023-01-17] MEDS: HYDROmorphone 2 MG/ML VIAL (DILAUDID) IV PRN ×3 (13:46→22:45)
[2023-01-17] MEDS ORDERED: IBUP-2185 PO (15:46)
[2023-01-17] MEDS ORDERED: SILD100T PO (15:46)
[2023-01-17 16:19] VITALS: BP 133/69
--- NOTE | 2023-01-17 17:21 | Consultation-Cardiology ---
HPI-Cardiology Cardiology Consultation Date of Consultation 01/17/23 Date of Admission Time Seen by Provider: 17:19 Indication: Chest pain HPI 47 years old gentleman with no significant past medical history, has been having recurrent chest pain and left arm pain on and off for the past 3 to 4 days. This morning had more significant chest pain on the retrosternal area radiating to his neck. No shortness of breath. No palpitation, patient came into the emergency room for evaluation. On my evaluation he was laying in bed, having retrosternal chest pain. Home Medications & Allergies Allergies: Coded Allergies: zolpidem (Verified Allergy, Unknown, 01/17/23) Home Medication List Reviewed: Yes EQR-Ccyhxo-Beznie Hx Patient Social History Marital Status: Employed/Student: employed Smoking Status: Former Smoker Recent Hopitalizations: No Have you traveled recently?: No Alcohol Use?: Yes Past Medical History Discussed below Family Medical History Family Medical Hx Father has history of heart disease Review of Systems-General Review of Systems Constitutional: see HPI; No chills, No fever EENTM: see HPI, no symptoms reported Respiratory: no symptoms reported, see HPI Cardiovascular: see HPI, chest pain Gastrointestinal: no symptoms reported, see HPI Genitourinary: no symptoms reported, see HPI Musculoskeletal: no symptoms reported Skin: no symptoms reported Psychiatric/Neurological: Anxiety Reviewed Test Results Reviewed Test Results Lab Laboratory Tests Test 01/17/23 07:54 01/17/23 10:00 Range/Units White Blood Count 10.0 4.3-11.0 10^3/uL Red Blood Count 5.73 H 4.30-5.52 10^6/uL Hemoglobin 17.4 13.3-17.7 g/dL Hematocrit 51 40-54 % Mean Corpuscular Volume 89 80-99 fL Mean Corpuscular Hemoglobin 30 25-34 pg Mean Corpuscular Hemoglobin Concent 34 32-36 g/dL Red Cell Distribution Width 11.7 10.0-14.5 % Platelet Count 293 130-400 10^3/uL Mean Platelet Volume 8.6 L 9.0-12.2 fL Immature Granulocyte % (Auto) 0 % Neutrophils (%) (Auto) 61 42-75 % Lymphocytes (%) (Auto) 25 12-44 % Monocytes (%) (Auto) 9 0-12 % Eosinophils (%) (Auto) 4 0-10 % Basophils (%) (Auto) 1 0-10 % Neutrophils # (Auto) 6.1 1.8-7.8 10^3/uL Lymphocytes # (Auto) 2.5 1.0-4.0 10^3/uL Monocytes # (Auto) 0.9 0.0-1.0 10^3/uL Eosinophils # (Auto) 0.4 H 0.0-0.3 10^3/uL Basophils # (Auto) 0.1 0.0-0.1 10^3/uL Immature Granulocyte # (Auto) 0.0 0.0-0.1 10^3/uL Prothrombin Time 13.2 12.2-14.7 SEC INR Comment 1.0 0.8-1.4 Activated Partial Thromboplast Time 30 24-35 SEC D-Dimer 0.28 0.00-0.49 UG/ML Sodium Level 137 135-145 MMOL/L Potassium Level 3.9 3.6-5.0 MMOL/L Chloride Level 100 98-107 MMOL/L Carbon Dioxide Level 25 21-32 MMOL/L Anion Gap 12 5-14 MMOL/L Blood Urea Nitrogen 14 7-18 MG/DL Creatinine 1.02 0.60-1.30 MG/DL Estimat Glomerular Filtration Rate 90 BUN/Creatinine Ratio 14 Glucose Level 109 H 70-105 MG/DL Calcium Level 9.5 8.5-10.1 MG/DL Corrected Calcium 9.3 8.5-10.1 MG/DL Magnesium Level 1.9 1.6-2.4 MG/DL Total Bilirubin 0.5 0.1-1.0 MG/DL Aspartate Amino Transf (AST/SGOT) 36 H 5-34 U/L Alanine Aminotransferase (ALT/SGPT) 58 H 0-55 U/L Alkaline Phosphatase 96 40-136 U/L Myoglobin < 21.0 <72.0 NG/ML Troponin I < 0.30 < 0.30 <0.30 NG/ML Pro-B-Type Natriuretic Peptide 36.1 <125.0 PG/ML Total Protein 7.5 6.4-8.2 GM/DL Albumin 4.3 3.2-4.5 GM/DL Lipase 21 8-78 U/L Physical Exam Physical Exam Vital Signs Vital Signs - First Documented 01/17/23 01/17/23 07:45 11:34 Temp 36.5 Pulse 98 Resp 12 B/P (MAP) 158/98 (118) Pulse Ox 100 O2 Delivery Room Air Capillary Refill : Less Than 3 Seconds Height, Weight, BMI Height: 6'4.00" Weight: 289lbs. oz. 131.832640hy; 30.68 BMI Method:Stated General Appearance: Anxious, Moderate Distress HEENT: PERRL/EOMI, Pharynx Normal Neck: Full Range of Motion, Normal Inspection, Non Tender, Supple Respiratory: Chest Non Tender, Lungs Clear, Normal Breath Sounds, No Accessory Muscle Use, No Respiratory Distress Cardiovascular: Regular Rate, Rhythm, No Murmur, Normal Peripheral Pulses Gastrointestinal: Normal Bowel Sounds, Soft, Tenderness (Epigastric and right upper quadrant) Rectal: Deferred Extremity: Normal Capillary Refill, Normal Inspection, No Calf Tenderness, No Pedal Edema Neurologic/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, 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 Still having pain. On examination he has reproducible epigastric and right upper quadrant pain. We will consult general surgery for evaluation. Maintained on fentanyl and Protonix. Patient is n.p.o. after midnight, after the GI work-up I will consider doing stress test Family history of heart disease. Twelve-lead EKG showing sinus rhythm with no acute abnormality History of alcoholism. Clinical Quality Measures AMI/AHF: ASA po Prior to arrival: SEBASTIAN Carreon MD Jan 17, 2023 17:21
--- NOTE | 2023-01-17 18:42 | Consultation - Surgery ---
GOKUL OLGUIN 01/17/23 1842: History of Present Illness History of Present Illness Patient Consulted On(claudia/time) 01/17/23 18:29 Date Seen by Provider: Jan 17, 2023 Time Seen by Provider: 18:29 Reason for Visit: Chest pain History of Present Illness Sg Downey is a 47yo nonsmoker male who drinks a 6pack of beer and 2 shots of liquor daily. Pt has been having intermittent chest pain for past 2-3 days and presented to [facility] due to severe crushing chest pain radiation to back, left arm, and jaw that began this morning around 7:15am. Pt has a history of PTSD that has caused similar symptoms in the past, but those symptoms typically go away quickly unlike what he has experienced today. Pt states pain is primarily located in his chest midline, and w/ palpation midline and right sided abdominal pain. Chest pain worsens w/ deep inspiration and improves with pain medication; at rest abdominal pain is characterized as a tightness in the epigasatric region, and w/ palpation he experienced deep sharp pain. Surgery was consulted due to Epigastric and RUQ pain concerning for pathology of gallbladder that was noticed by Dr. Yanes during abdominal palpation Allergies and Home Medications Allergies Coded Allergies: zolpidem (Verified Allergy, Unknown, 01/17/23) Patient Home Medication List Ibuprofen (Ibuprofen) 200 Mg Capsule, 400-600 MG PO Q8H PRN for PAIN-MILD (1-4), (Reported) Entered as Reported by: KARLO DUPREE on 01/17/23 1546 Last Action: Reviewed Sildenafil Citrate (Viagra) 100 Mg Tablet, 100 MG PO UD PRN for ED, (Reported) Entered as Reported by: KARLO DUPREE on 01/17/23 1546 Last Action: Reviewed Discontinued Medications Cyclobenzaprine HCl (Cyclobenzaprine HCl) 10 Mg Tablet, 10 MG PO Q8H PRN for SPASMS Prescribed by: JEREMI RAMIREZ on 02/17/22 1240 Last Action: Discontinued Ondansetron (Ondansetron Odt) 4 Mg Tab.rapdis, 4 MG SL Q4H PRN for NAUSEA/VOMITING-1ST LINE Prescribed by: TAMIKO SCRUGGS on 10/14/18 1054 Last Action: Discontinued Sulfamethoxazole/Trimethoprim (Bactrim Ds Tablet) 1 Each Tablet, 1 EACH PO BID Prescribed by: TAMIKO SCRUGGS on 10/14/18 1054 Last Action: Discontinued Past Mcifsou-Eqivqn-Figdxy Hx Patient Social History Smoking Status: Former Smoker Recent Hopitalizations: No Alcohol Use?: Yes (6pack + 2 shots daily ) Have you traveled recently?: No Seasonal Allergies Seasonal Allergies: Yes Surgeries History of Surgeries: Yes (sebaceous cyst from back) Surgeries: Abdominal, Adenoidectomy, Tonsillectomy Respiratory History of Respiratory Disorde: No Cardiovascular History of Cardiac Disorders: No Neurological History of Neurological Disord: No Genitourinary History of Genitourinary Disor: No Gastrointestinal History of Gastrointestinal Di: No Musculoskeletal History of Musculoskeletal Dis: No Endocrine History of Endocrine Disorders: No HEENT History of HEENT Disorders: No Cancer History of Cancer: No Psychosocial History of Psychiatric Problem: Yes Behavioral Health Disorders: PTSD Integumentary History of Skin or Integumenta: No Blood Transfusions History of Blood Disorders: No Review of Systems-General Constitutional: No chills, No fever EENTM: other (Jaw tightness); No hearing loss Respiratory: No cough; short of breath Cardiovascular: chest pain, palpitations Gastrointestinal: abdominal pain (Epigastric, RUQ, RLQ), nausea; No vomiting Genitourinary: No dysuria, No frequency Musculoskeletal: back pain, muscle pain (Left Arm Pain ) Skin: No change in color, No change in hair/nails Psychiatric/Neurological: Anxiety, Numbness (Left Arm), Tingling (Left Arm) Physical Exam-General Problems Physical Exam Vital Signs Vital Signs - First Documented 01/17/23 01/17/23 07:45 11:34 Temp 36.5 Pulse 98 Resp 12 B/P (MAP) 158/98 (118) Pulse Ox 100 O2 Delivery Room Air Capillary Refill : Less Than 3 Seconds General Appearance: no apparent distress HEENT: PERRL/EOMI Neck: non-tender, supple Respiratory: lungs clear, normal breath sounds Cardiovascular: regular rate, rhythm, no JVD, no murmur Peripheral Pulses: 2+ Radial Pulses (R), 2+ Radial Pulses (L) Gastrointestinal: normal bowel sounds, soft, tenderness (Abdominal pain located more in Midline Epigastric region ; RUQ and RLQ pain not as significant) Extremities: no pedal edema, no calf tenderness Neurologic/Psychiatric: alert, normal mood/affect, oriented x 3 Skin: normal color, warm/dry Lymphatic: no adenopathy Data Review Labs Laboratory Tests 01/17/23 07:54: White Blood Count 10.0, Red Blood Count 5.73H, Hemoglobin 17.4, Hematocrit 51, Mean Corpuscular Volume 89, Mean Corpuscular Hemoglobin 30, Mean Corpuscular Hemoglobin Concent 34, Red Cell Distribution Width 11.7, Platelet Count 293, Mean Platelet Volume 8.6L, Immature Granulocyte % (Auto) 0, Neutrophils (%) (Auto) 61, Lymphocytes (%) (Auto) 25, Monocytes (%) (Auto) 9, Eosinophils (%) (Auto) 4, Basophils (%) (Auto) 1, Neutrophils # (Auto) 6.1, Lymphocytes # (Auto) 2.5, Monocytes # (Auto) 0.9, Eosinophils # (Auto) 0.4H, Basophils # (Auto) 0.1, Immature Granulocyte # (Auto) 0.0, Prothrombin Time 13.2, INR Comment 1.0, Activated Partial Thromboplast Time 30, D-Dimer 0.28, Sodium Level 137, Potassium Level 3.9, Chloride Level 100, Carbon Dioxide Level 25, Anion Gap 12, Blood Urea Nitrogen 14, Creatinine 1.02, Estimat Glomerular Filtration Rate 90, BUN/Creatinine Ratio 14, Glucose Level 109H, Calcium Level 9.5, Corrected Calcium 9.3, Magnesium Level 1.9, Total Bilirubin 0.5, Aspartate Amino Transf (AST/SGOT) 36H, Alanine Aminotransferase (ALT/SGPT) 58H, Alkaline Phosphatase 96, Myoglobin < 21.0, Troponin I < 0.30, Pro-B-Type Natriuretic Peptide 36.1, Total Protein 7.5, Albumin 4.3, Lipase 21 01/17/23 10:00: Troponin I < 0.30 Radiology CHEST 1 VIEW AP/PA ONLY INDICATION: Chest pain, FINDINGS: No priors Lungs clear. No failure, effusion or pneumothorax. Impression: Normal frontal chest. Date of Exam:01/17/23 CT ANGIO CHEST W PROCEDURE: CT angiography of the chest with contrast. TECHNIQUE: Multiple contiguous axial images were obtained through the chest after uneventful bolus administration of intravenous contrast. 3D reconstructed CTA MIP acquisitions were also performed. Auto Exposure Controls were utilized during the CT exam to meet ALARA standards for radiation dose reduction. INDICATION: Chest pain. I have no relevant comparison. FINDINGS: There are no intraluminal pulmonary arterial filling defects. There are no findings of pulmonary arterial embolic disease. Thoracic aorta patent and nonaneurysmal and nonacute. No pleural or pericardial hemorrhage or effusion. Lungs clear and well expanded. No edema or pneumonia. No lung mass. No thoracic adenopathy. No acute or suspicious soft tissue or osseous chest wall pathology. There is no axillary, hilar or mediastinal lymphadenopathy. The visible upper abdominal structures appeared unremarkable. IMPRESSION: Negative for PE or other acute abnormalities. Assessment/Plan Assessment/Plan Assessment/Plan Pleuritic Chest Pain Abdominal pain- Epigastric, RUQ, RLQ Alcohol Abuse Family history of heart disease NPO US Gall Bladder Hold Lovenox Pain Medications and Supportive Care Clinical Quality Measures AMI/AHF: ASA po Prior to arrival: NEL Lance DO 01/18/23 0819: History of Present Illness History of Present Illness History of Present Illness 47 year old male with chest pain that is at bottom of sternum/epigastric area. States crushing type pain. Move out around the area. Some pain to he left shoulder. Deep breathing makes worse along with food. Never had pain like this before. Pain medication makes better. Pain has not really. Allergies and Home Medications Allergies Coded Allergies: zolpidem (Verified Allergy, Unknown, 01/17/23) Patient Home Medication List Home Medication List Reviewed: Yes Ibuprofen (Ibuprofen) 200 Mg Capsule, 400-600 MG PO Q8H PRN for PAIN-MILD (1-4), (Reported) Entered as Reported by: KARLO DUPREE on 01/17/23 1546 Last Action: Reviewed Sildenafil Citrate (Viagra) 100 Mg Tablet, 100 MG PO UD PRN for ED, (Reported) Entered as Reported by: KARLO DUPREE on 01/17/23 1546 Last Action: Reviewed Discontinued Medications Cyclobenzaprine HCl (Cyclobenzaprine HCl) 10 Mg Tablet, 10 MG PO Q8H PRN for SPASMS Prescribed by: JEREMI RAMIREZ on 02/17/22 1240 Last Action: Discontinued Ondansetron (Ondansetron Odt) 4 Mg Tab.rapdis, 4 MG SL Q4H PRN for NAUSEA/VOMITING-1ST LINE Prescribed by: TAMIKO SCRUGGS on 10/14/181053 Last Action: Discontinued Sulfamethoxazole/Trimethoprim (Bactrim Ds Tablet) 1 Each Tablet, 1 EACH PO BID Prescribed by: TAMIKO SCRUGGS on 10/14/181053 Last Action: Discontinued Past Cqjxsds-Fklsir-Tnmyjz Hx Patient Social History Alcohol Use?: Yes (6pack + 2 shots daily ) Surgeries Surgeries: Tonsillectomy Reviewed Nursing Assessment Reviewed/Agree w Nursing PMH: Yes Family Medical History Significant Family History: No Pertinent Family Hx Review of Systems-General Constitutional: No chills, No fever EENTM: No hearing loss, No blurred vision Respiratory: No cough; short of breath (due to pain) Cardiovascular: chest pain, palpitations Gastrointestinal: abdominal pain (RUQ), nausea; No vomiting Genitourinary: No dysuria, No frequency Musculoskeletal: back pain, muscle pain (Left Arm Pain ) Skin: No change in color, No change in hair/nails Psychiatric/Neurological: Anxiety, Numbness (Left Arm), Tingling (Left Arm) All Other Systems Reviewed Negative Unless Noted: Yes (Negative excepted noted.) Physical Exam-General Problems Physical Exam General Appearance: WD/WN, no apparent distress HEENT: PERRL/EOMI, normal ENT inspection Neck: non-tender, supple Respiratory: chest non-tender, no respiratory distress, no accessory muscle use Cardiovascular: regular rate, rhythm, no JVD Gastrointestinal: soft, tenderness (ruq/epigastric) Rectal: deferred Back: normal inspection, no CVA tenderness Extremities: non-tender, no pedal edema, no calf tenderness Neurologic/Psychiatric: alert, normal mood/affect, oriented x 3 Skin: normal color, warm/dry Lymphatic: no adenopathy Assessment/Plan Assessment/Plan Assessment/Plan Pleuritic Chest Pain Abdominal pain- Epigastric, RUQ, RLQ Alcohol Abuse Family history of heart disease NPO US Gall Bladder Hold Lovenox Pain Medications and Supportive Care Supervisory-Addendum Brief Verification & Attestation Participated in pt care: history, MDM, physical Personally performed: exam, history, MDM, supervision of care Care discussed with: Medical Student Procedures: n/a Results interpretation: Verified all documentation Verification and Attestation of Medical Student E/M Service A medical student performed and documented this service in my presence. I reviewed and verified all information documented by the medical student and made modifications to such information, when appropriate. I personally performed the physical exam and medical decision making. Nel Echavarria, Jan 17, 2023,20:23 GOKUL OLGUIN Jan 17, 2023 18:42 NEL ECHAVARRIA DO Jan 18, 2023 08:19
[2023-01-17] MEDS ORDERED: LACTATED RINGERS 1,000 ML IV ONE (19:36)
[2023-01-17 20:05] VITALS: BP 145/85
[2023-01-17] MEDS: LACTATED RINGERS 1,000 ML IV SCH (20:12)
[2023-01-17] MEDS: DOCUSATE SODIUM 100 MG (COLACE) CAP PO SCH (20:13)
[2023-01-17 23:15] VITALS: BP 146/80
[2023-01-18] VITALS (9 sets, daily range): BP systolic 124–159; BP diastolic 67–90
[2023-01-18] MEDS: LACTATED RINGERS 1,000 ML IV SCH ×2 (03:24→15:31)
[2023-01-18 05:49] LABS: BASOPHILS # (AUTO) 0.1 10^3/uL (0.0-0.1); BASOPHILS % (AUTO) 1 % (0-10); EOSINOPHILS # (AUTO) 0.4 10^3/uL (0.0-0.3); EOSINOPHILS % (AUTO) 5 % (0-10); HEMATOCRIT 48 % (40-54); HEMOGLOBIN 16.8 g/dL (13.3-17.7); LYMPHOCYTES # (AUTO) 1.8 10^3/uL (1.0-4.0); LYMPHOCYTES % (AUTO) 23 % (12-44); MEAN CORPUSCULAR HEMOGLOBIN 32 pg (25-34); MEAN CORPUSCULAR HGB CONC 35 g/dL (32-36); MEAN CORPUSCULAR VOLUME 90 fL (80-99); MEAN PLATELET VOLUME 8.9 fL (9.0-12.2); MONOCYTES # (AUTO) 0.8 10^3/uL (0.0-1.0); MONOCYTES % (AUTO) 10 % (0-12); NEUTROPHILS # (AUTO) 4.8 10^3/uL (1.8-7.8); NEUTROPHILS % (AUTO) 60 % (42-75); PLATELET COUNT 253 10^3/uL (130-400)
[2023-01-18 06:07] LABS: ALBUMIN 3.6 GM/DL (3.2-4.5); CALCIUM 9.1 MG/DL (8.5-10.1); CREATININE SERUM 1.08 MG/DL (0.60-1.30); POTASSIUM 4.1 MMOL/L (3.6-5.0); TOTAL PROTEIN 6.6 GM/DL (6.4-8.2)
--- NOTE | 2023-01-18 08:39 | Progress Note - Surgery ---
Subjective Date Seen by a Provider: Jan 18, 2023 Time Seen by a Provider: 08:33 Subjective/Events-last exam Patient still with pain. NPO. Getting u/s currently and had gallstone present. Not having any nausea or emesis at this time. Pain in epigastric area. Denies fever sweats chills shortness of breath or chest pain at this time. Objective Exam Vital Signs Date Time Temp Pulse Resp B/P (MAP) Pulse Ox O2 Delivery O2 Flow Rate FiO2 01/18/23 07:18 82 01/18/23 03:21 36.3 76 18 127/76 (93) 97 Room Air 01/18/23 01:00 72 01/17/23 23:15 36.3 80 18 146/80 (102) 97 Room Air 01/17/23 20:15 Room Air 01/17/23 20:05 36.5 93 18 145/85 (105) 96 01/17/23 19:49 96 Room Air 01/17/23 19:00 100 01/17/23 16:19 36.4 113 18 133/69 (90) 96 Room Air 01/17/23 14:25 89 01/17/23 13:45 Room Air 01/17/23 13:25 36.5 84 100 01/17/23 12:48 36.8 88 18 148/83 (104) 96 Room Air 01/17/23 11:34 36.5 84 15 149/89 100 Room Air I & O 01/18/23 07:00 Intake Total 2545 ml Balance 2545 ml Capillary Refill : Less Than 3 Seconds General Appearance: No Apparent Distress, Anxious HEENT: PERRL/EOMI, Normal ENT Inspection Neck: Normal Inspection, Non Tender, Supple Respiratory: Chest Non Tender, No Accessory Muscle Use, No Respiratory Distress Cardiovascular: Regular Rate, Rhythm, No JVD Peripheral Pulses: 2+ Radial Pulses (R), 2+ Radial Pulses (L) Gastrointestinal: soft, tenderness (ruq/epigastric) Extremity: Normal Capillary Refill, Normal Inspection, No Calf Tenderness, No Pedal Edema Neurologic/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, 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, 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 Skin: Normal Color, Warm/Dry Lymphatic: No Adenopathy Results Lab Laboratory Tests 01/17/23 10:00: Troponin I < 0.30 01/18/23 05:30: White Blood Count 8.0, Red Blood Count 5.34, Hemoglobin 16.8, Hematocrit 48, Mean Corpuscular Volume 90, Mean Corpuscular Hemoglobin 32, Mean Corpuscular Hemoglobin Concent 35, Red Cell Distribution Width 11.7, Platelet Count 253, Mean Platelet Volume 8.9L, Immature Granulocyte % (Auto) 1, Neutrophils (%) (Auto) 60, Lymphocytes (%) (Auto) 23, Monocytes (%) (Auto) 10, Eosinophils (%) (Auto) 5, Basophils (%) (Auto) 1, Neutrophils # (Auto) 4.8, Lymphocytes # (Auto) 1.8, Monocytes # (Auto) 0.8, Eosinophils # (Auto) 0.4H, Basophils # (Auto) 0.1, Immature Granulocyte # (Auto) 0.0, Sodium Level 139, Potassium Level 4.1, Chloride Level 104, Carbon Dioxide Level 24, Anion Gap 11, Blood Urea Nitrogen 14, Creatinine 1.08, Estimat Glomerular Filtration Rate 84, BUN/Creatinine Ratio 13, Glucose Level 97, Calcium Level 9.1, Corrected Calcium 9.4, Total Bilirubin 1.0, Aspartate Amino Transf (AST/SGOT) 31, Alanine Aminotransferase (ALT/SGPT) 52, Alkaline Phosphatase 65, Total Protein 6.6, Albumin 3.6, Triglycerides Level 380H, Cholesterol Level 235H, LDL Cholesterol Direct 138H, VLDL Cholesterol 76H, HDL Cholesterol 43 Assessment/Plan Assessment/Plan Assessment/Plan Pleuritic Chest Pain Abdominal pain- Epigastric, RUQ, RLQ Alcohol Abuse Family history of heart disease Cholelithiasis NPO US Gall Bladder at beside with cholelithiasis awaiting official report Hold Lovenox Pain Medications and Supportive Care Discussed risks and benefits of laparoscopic cholecystectomy with intraoperative cholangiogram all other indicated procedures he understands and wishes to proceed. Clinical Quality Measures AMI/AHF: ASA po Prior to arrival: NEL Lance DO Jan 18, 2023 08:39
[2023-01-18] MEDS ORDERED: ASPIRIN 81 MG CHEW (CHILDREN'S ASA) PO SCH (09:00)
--- NOTE | 2023-01-18 09:03 | Progress Note - Surgery ---
Subjective Date Seen by a Provider: Jan 18, 2023 Time Seen by a Provider: 08:58 Subjective/Events-last exam Pt was laying in bed on phone before interview today. Pt states that he didn't sleep well last night and only got about 3.5hrs of sleep. States that his pain is increasing and is about an 6/10 currently and was about 4-5/10 earlier during the night. Pt states that pain is localized in chest and lower abdomen region. States SOB and numbness/tingling has improved. Pt reports constipation, but reports yesterday morning had episode of diarrhea. Pt received US this morning when was positive for gallstones. Review of Systems General: No Chills, No Night Sweats HEENT: No Head Aches, No Visual Changes Pulmonary: Dyspnea (improved); No Cough Cardiovascular: Chest Pain; No: Palpitations Gastrointestinal: Abdominal Pain; No: Nausea, Vomiting Genitourinary: No Dysuria, No Frequency Musculoskeletal: other (Minimal Numbness and Tingling of LUE); No: neck pain Neurological: No: Weakness, Numbness Objective Exam Vital Signs Date Time Temp Pulse Resp B/P (MAP) Pulse Ox O2 Delivery O2 Flow Rate FiO2 01/18/23 08:30 36.2 78 20 159/90 (113) 99 Room Air 01/18/23 07:18 82 01/18/23 03:21 36.3 76 18 127/76 (93) 97 Room Air 01/18/23 01:00 72 01/17/23 23:15 36.3 80 18 146/80 (102) 97 Room Air 01/17/23 20:15 Room Air 01/17/23 20:05 36.5 93 18 145/85 (105) 96 01/17/23 19:49 96 Room Air 01/17/23 19:00 100 01/17/23 16:19 36.4 113 18 133/69 (90) 96 Room Air 01/17/23 14:25 89 01/17/23 13:45 Room Air 01/17/23 13:25 36.5 84 100 01/17/23 12:48 36.8 88 18 148/83 (104) 96 Room Air 01/17/23 11:34 36.5 84 15 149/89 100 Room Air I & O 01/18/23 07:00 Intake Total 2545 ml Balance 2545 ml Capillary Refill : Less Than 3 Seconds General Appearance: No Apparent Distress, Anxious HEENT: PERRL/EOMI, Normal ENT Inspection Neck: Normal Inspection, Non Tender, Supple Respiratory: Chest Non Tender, No Accessory Muscle Use, No Respiratory Distress Cardiovascular: Regular Rate, Rhythm, No JVD Peripheral Pulses: 2+ Radial Pulses (R), 2+ Radial Pulses (L) Gastrointestinal: soft, tenderness (ruq/epigastric) Extremity: Normal Capillary Refill, Normal Inspection, No Calf Tenderness, No Pedal Edema 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/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, 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, 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 Skin: Normal Color, Warm/Dry Lymphatic: No Adenopathy Results Lab Laboratory Tests 01/17/23 10:00: Troponin I < 0.30 01/18/23 05:30: White Blood Count 8.0, Red Blood Count 5.34, Hemoglobin 16.8, Hematocrit 48, Mean Corpuscular Volume 90, Mean Corpuscular Hemoglobin 32, Mean Corpuscular Hemoglobin Concent 35, Red Cell Distribution Width 11.7, Platelet Count 253, Mean Platelet Volume 8.9L, Immature Granulocyte % (Auto) 1, Neutrophils (%) (Auto) 60, Lymphocytes (%) (Auto) 23, Monocytes (%) (Auto) 10, Eosinophils (%) (Auto) 5, Basophils (%) (Auto) 1, Neutrophils # (Auto) 4.8, Lymphocytes # (Auto) 1.8, Monocytes # (Auto) 0.8, Eosinophils # (Auto) 0.4H, Basophils # (Auto) 0.1, Immature Granulocyte # (Auto) 0.0, Sodium Level 139, Potassium Level 4.1, Chloride Level 104, Carbon Dioxide Level 24, Anion Gap 11, Blood Urea Nitrogen 14, Creatinine 1.08, Estimat Glomerular Filtration Rate 84, BUN/Creatinine Ratio 13, Glucose Level 97, Calcium Level 9.1, Corrected Calcium 9.4, Total Bilirubin 1.0, Aspartate Amino Transf (AST/SGOT) 31, Alanine Aminotransferase (ALT/SGPT) 52, Alkaline Phosphatase 65, Total Protein 6.6, Albumin 3.6, Triglycerides Level 380H, Cholesterol Level 235H, LDL Cholesterol Direct 138H, VLDL Cholesterol 76H, HDL Cholesterol 43 Assessment/Plan Assessment/Plan Assessment/Plan Pleuritic Chest Pain Abdominal pain- Epigastric, RUQ, RLQ Alcohol Abuse Family history of heart disease Cholelithiasis NPO US Gall Bladder at beside with cholelithiasis awaiting official report Hold Lovenox Pain Medications and Supportive Care Discussed risks and benefits of laparoscopic cholecystectomy with intraoperative cholangiogram all other indicated procedures he understands and wishes to proceed. Clinical Quality Measures AMI/AHF: ASA po Prior to arrival: GOKUL Linder Jan 18, 2023 09:03
--- NOTE | 2023-01-18 09:57 | Diagnostic Imaging Report ---
PROCEDURE: US Gallbladder. INDICATION: Right upper quadrant abdominal pain TECHNIQUE: Multiple grayscale sonographic images were obtained of the right upper quadrant of the abdomen. CORRELATION STUDY: None FINDINGS: LIVER: Enlarged at 22.3 cm. There is heterogeneously coarse, dense echotexture which does limit echo penetration. The main portal vein is patent and with normal direction of flow. GALLBLADDER: Echogenic foci near the gallbladder neck, 1.7 x 1.1 x 1.3 cm suggested prominent gallstone. Borderline gallbladder wall thickening at 0.3 cm. COMMON BILE DUCT: Nondilated at 0.4 cm. AORTA/IVC: Not well visualized. PANCREAS: Visualized portions appearing unremarkable. RIGHT KIDNEY: 14.3 x 6.4 x 5.4 cm. Echogenic foci inferiorly suspect for nonobstructing stone, 0.7 x 0.5 x 1.0 cm. OTHER: No right upper quadrant ascites. IMPRESSION: 1. Echogenic foci dependently in the gallbladder. While no calcification demonstrated at recent CT angiogram, it is suspect for potential gallstone. Borderline gallbladder wall thickening. No bile duct dilatation. 2. Hepatomegaly with coarse echotexture favors probable fatty infiltration. 3. Probable nonobstructing right renal stone. Dictated by: Dictated on workstation # [id number]
[2023-01-18] MEDS ORDERED: LIDOCAINE PF 2% 5 ML (XYLOCAINE) VIAL ONE (10:45)
[2023-01-18] MEDS ORDERED: proPOfol 200 MG/20 ML (DIPRIVAN) VIAL IV ONE (10:45)
[2023-01-18] MEDS ORDERED: ONDANSETRON 4 MG/2 ML (SDV) Z0FRAN ONE (10:45)
[2023-01-18] MEDS ORDERED: GLYCOPYRROLATE 0.2 MG/ML (ROBINUL) 2 ML VIAL ONE (10:45)
[2023-01-18] MEDS ORDERED: MIDAZOLAM 2 MG/2 ML (VERSED) VIAL ONE (10:45)
[2023-01-18] MEDS ORDERED: fentaNYL INJ 100 MCG/2 ML AMP ONE ×2 (10:45→13:45)
[2023-01-18] MEDS ORDERED: NEOSTIGMINE (BLOXIVERZ ) 1 MG/1ML 10 ML VIAL ONE (10:48)
[2023-01-18] MEDS ORDERED: ROCURONIUM 50 MG/5 ML (ZEMURON) VIAL IV ONE (10:48)
[2023-01-18] MEDS ORDERED: BUP/EPI 0.5% 1:200,000 (SENSORCAINE) 30 ML VIAL ONE (10:55)
--- NOTE | 2023-01-18 12:18 | Cardiology Progress Note ---
Subjective Date Seen by Provider: Jan 18, 2023 Time Seen by Provider: 12:17 Subjective/Events-last exam Patient was seen at bedside still having abdominal pain. No chest pain. Review of Systems General: No Chills, No Night Sweats, No Fatigue, No Malaise, No Appetite, No Other HEENT: No Head Aches, No Visual Changes, No Eye Pain, No Ear Pain, No Dysphasia, No Sinus Congestion, No Post Nasal Drip, No Sore Throat, No Other Pulmonary: No Dyspnea, No Cough, No Pleuritic Chest Pain, No Other Cardiovascular: No: Chest Pain, Palpitations, Orthopnea, Paroxysmal Noc. Dyspnea, Edema, Lt Headedness, Other Objective-Cardiology Exam Last Set of Vital Signs Vital Signs 01/18/23 12:16 Temp 36.5 Pulse 73 Resp 18 B/P (MAP) 134/78 (96) Pulse Ox 94 O2 Delivery Room Air I&O Intake and Output 01/18/23 00:00 Intake Total 1245 ml Balance 1245 ml Intake Oral 1245 ml # Voids 3 Daily Weight Change No General: Alert, Oriented X3, Cooperative HEENT: Atraumatic, PERRLA Neck: Supple, No JVD, No Thyromegaly Lungs: Clear to Auscultation, Normal Air Movement Heart: Regular Rate, Normal S1, Normal S2, No Murmurs Abdomen: Normal Bowel Sounds, Soft, No Hepatosplenomegaly, No Masses, Other (Epigastric and right upper quadrant tenderness) Extremities: No Clubbing, No Cyanosis, No Edema, Normal Pulses, No Tenderness/Swelling Skin: No Rashes, No Breakdown, No Significant Lesion Neuro: Normal Gait, Normal Speech, Strength at 5/5 X4 Ext, Normal Tone, Sensation Intact Psych/Mental Status: Mental Status NL, Mood NL Results Lab Laboratory Tests 01/18/23 05:30 A/P-Cardiology Admission Diagnosis Chest pain Abdominal pain Family history of heart disease Assessment/Plan Chest pain nonspecific etiology resembling angina. Having abdominal pain and right upper quadrant pain, probably referred pain from his gallbladder to his chest. Appreciate Dr. Cadena's help. We will consider stress test as an outpatient in the future. At this time his cardiac status is stable and he is considered at low to intermediate risk for perioperative cardiovascular complications. Family history of heart disease. Twelve-lead EKG showing sinus rhythm with no acute abnormality History of alcoholism. SEBASTIAN FERRO MD Jan 18, 2023 12:18
[2023-01-18] MEDS: LACTATED RINGERS 1,000 ML IV PRN ×2 (12:45→13:43)
[2023-01-18] MEDS ORDERED: ceFAZolin INJECTION 2,000 MG ONE (12:54)
[2023-01-18] MEDS ORDERED: NS (IVPB) 50 ML ONE (12:54)
[2023-01-18] MEDS ORDERED: ceFAZolin INJECTION 2,000 MG in NS (IVPB) 50 ML IV ONE (13:00)
[2023-01-18] MEDS ORDERED: BUP/EPI 0.5% 1:200,000 (SENSORCAINE) 30 ML VIAL INJ ONE (13:25)
[2023-01-18] MEDS ORDERED: IOHEXOL 300 MG/ML 100 ML (OMNIPAQUE 300) VIAL INJ ONE (13:30)
[2023-01-18] MEDS ORDERED: SEVOFLURANE (ULTANE) 15 ML INHAL SOLN ONE (13:51)
--- NOTE | 2023-01-18 14:01 | Progress Note-Post Operative ---
Post-Operative Progess Note Surgeon (s)/Front Maker Lockstitch (s) Surgeon NEL ECHAVARRIA DO Front Maker Lockstitch: Dr. Fournier to assist in retraction dissection and closure. Pre-Operative Diagnosis symptomatic cholelithiasis Post-Operative Diagnosis same Procedure & Operative Findings Date of Procedure 01/18/23 Procedure Performed/Findings PROCEDURE: Laparoscopic cholecystectomy with intraoperative cholangiogram. COMPLICATIONS: None. PROCEDURE: The patient was taken to the operating suite and was prepped and draped in sterile fashion. A surgical pause was performed. Just superior to the umbilicus, a 12 mm incision was made. Dissection was taken down to the fascia, which was then scored and grasped with a Noe and the abdomen was then entered. A 0 Vicryl suture was placed in a opapnp-il-osqmj fashion and a Neal trocar was placed and secured. Pneumoperitoneum was achieved. A 5mm trochar place in the subxyphoid and 2 in the right upper quadrant. The gallbladder was then grasped and elevated. The cystic duct, and cystic artery were then dissected out. Clip was placed on the distal portion of the cystic duct which was then partially transected. An arrow catheter was inserted into the duct. The cholangiogram was then performed. No filing defects and contrast made its way into the duodenum. Catheter removed. Clips were placed on proximal portion of the cystic duct and then the duct was then transected. Clips were placed along the proximal and distal portion of the cystic artery which was then transected. Hook cautery was used to dissect the gallbladder from the gallbladder fossa achieving hemostasis. The gallbladder was placed in an Endobag and removed through the 12 mm trocar site. The abdomen was then reinspected. Copious amounts of irrigation were used to irrigate the abdomen and there were no signs of active bleeding. Hemostasis had been achieved. The 12 mm fascial defect was then closed with 0 Vicryl suture that had been placed in a rehdaf-cm-djbbc fashion. The abdomen was then desufflated, the trocars were removed. The abdomen was then washed and dried. The skin was then closed using 4-0 Monocryl in a subcuticular fashion. The abdomen was washed and dried and Skin Affix was place over incisions. Patient tolerated the procedure well without any complications and was taken to the recovery room in stable condition. Anesthesia Type general Estimated Blood Loss Estimated blood loss (mL): minimal Specimens/Packing Specimens Removed gallbladder NEL ECHAVARRIAb 24, 2023 14:01
[2023-01-18] MEDS ORDERED: ACHD5005 PO (14:02)
[2023-01-18] MEDS ORDERED: DOCU-143 PO (14:02)
--- NOTE | 2023-01-18 14:04 | Short Stay Summary-Hospitalist ---
JEREMIAHDEMETRA 01/18/23 1404: History of Present Illness HPI/Chief Complaint Sg Jasso is a 47M who presented to the ED complaining of chest pain. He noted chest pain intermittently for the last 2 or 3 days. He described the pain and crushing with radiation to the L axilla and neck. In the ER cardiac workup was largely negative. Normal EKG and negative troponins. Echo performed with relatively normal results. Abdominal exam made Dr Yanes consider gallbladder related causes of this angina like pain. Gallbladder US revealed cholelithiasis and Dr Echavarria plans surgery this afternoon. This morning he is seen at bedside with complaints of epigastric pain worse on the R of midline. Pain in similar to yesterday in severity. When asked about biliary colic like pain he endorses RUQ pain with heavy meals on and off for the last year. He denies N/V and fever. BM and urination this morning. No new complaints overnight. Made NPO for the OR later today. Source: patient Exam Limitations: no limitations Date Seen 01/18/23 Time Seen by a Provider: 11:30 Attending Physician Benjie Wilson MD PCP Admitting Physician: Ju Jasso DO Attending Physician: Ju Jasso DO Referring Physician Date of Admission Jan 17, 2023 at 12:15 Home Medications & Allergies Home Medications Reviewed patient Home Medication Reconciliation performed by pharmacy medication reconciliations laboratory mechanical technician and/or nursing. Patients Allergies have been reviewed. Allergies Allergies Coded Allergies zolpidem (Verified Allergy, Unknown, 01/17/23) Past Medical/Social/Family Hx Patient Social History Marrital Status: Employed/Student: employed Tobacco Use?: No Smoking Status: Former Smoker Use of E-Cig and/or Vaping dev: No Substance use?: No Alcohol Use?: Yes (6pack + 2 shots daily ) Alcohol type: Beer, Hard Liquor Additional alcohol type: 6 PACK; COUPLE SHOTS OF VODKA DAILY Alcohol Frequency: Daily Pt stated abuse/neglect: No Immunizations Up To Date Influenza Vaccine Up-to-Date: No; Not Current First/Initial COVID19 Vaccinat: Denies Tetanus Booster (TDap): More Than 5 Years Hepatitis A: Yes Hepatitis B: Yes TB Skin Test: None Current Status Advance Directives: No Communicates: Verbally Primary Language: Guyanese Preferred Spoken Language: Guyanese Is interpretation needed?: No Implanted or Applied Medical D: None Past Medical History Alcohol use disorder Family Medical History Family Hx: CAD in father and multiple uncles Review of Systems Constitutional: No chills, No fever EENTM: No ear pain, No vision loss Respiratory: No cough, No short of breath Cardiovascular: chest pain (epigastrium); No palpitations, No syncope Gastrointestinal: abdominal pain; No nausea, No vomiting Genitourinary: No dysuria, No hematuria Musculoskeletal: joint swelling (L shoulder and axilla) Skin: No change in color, No rash Psychiatric/Neurological: Denies Headache, Denies Weakness Physical Exam Physical Exam Vital Signs Vital Signs - First Documented 01/17/23 01/17/23 07:45 11:34 Temp 36.5 Pulse 98 Resp 12 B/P (MAP) 158/98 (118) Pulse Ox 100 O2 Delivery Room Air Capillary Refill : Less Than 3 Seconds Height, Weight, BMI Height: 6'4.00" Weight: 289lbs. oz. 131.748436he; 30.68 BMI Method:Stated General Appearance: No Apparent Distress, WD/WN HEENT: PERRL/EOMI, Moist Mucous Membranes Neck: Normal Inspection, Supple Respiratory: Chest Non Tender, Lungs Clear, No Accessory Muscle Use, No Respiratory Distress Cardiovascular: Regular Rate, Rhythm, Normal Peripheral Pulses Gastrointestinal: Normal Bowel Sounds, Soft; No Distended; Tenderness (Epigastric and right upper quadrant) Rectal: Deferred Extremity: Normal Capillary Refill, Normal Inspection, No Calf Tenderness, No P edal Edema Neurologic/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, Oriented x3 Skin: Normal Color, Warm/Dry Lymphatic: No Adenopathy Results Results/Procedures Labs Laboratory Tests 01/17/23 07:54 01/18/23 05:30 Patient resulted labs reviewed. Imaging [facility] [place], [place] NAME: SG JASSO MED REC#: [id number] PT STATUS: ADM Xochitl : 1975 PHYSICIAN: NEL ECHAVARRIA DO ADMIT DATE: 01/17/23 Signed Date of Exam:01/18/23 US GALLBLADDER [id number] PROCEDURE: US Gallbladder. INDICATION: Right upper quadrant abdominal pain TECHNIQUE: Multiple grayscale sonographic images were obtained of the right upper quadrant of the abdomen. CORRELATION STUDY: None FINDINGS: LIVER: Enlarged at 22.3 cm. There is heterogeneously coarse, dense echotexture which does limit echo penetration. The main portal vein is patent and with normal direction of flow. GALLBLADDER: Echogenic foci near the gallbladder neck, 1.7 x 1.1 x 1.3 cm suggested prominent gallstone. Borderline gallbladder wall thickening at 0.3 cm. COMMON BILE DUCT: Nondilated at 0.4 cm. AORTA/IVC: Not well visualized. PANCREAS: Visualized portions appearing unremarkable. RIGHT KIDNEY: 14.3 x 6.4 x 5.4 cm. Echogenic foci inferiorly suspect for nonobstructing stone, 0.7 x 0.5 x 1.0 cm. OTHER: No right upper quadrant ascites. IMPRESSION: 1. Echogenic foci dependently in the gallbladder. While no calcification demonstrated at recent CT angiogram, it is suspect for potential gallstone. Borderline gallbladder wall thickening. No bile duct dilatation. 2. Hepatomegaly with coarse echotexture favors probable fatty infiltration. 3. Probable nonobstructing right renal stone. Dictated by: Dictated on workstation # [id number] Dict: 01/18/23 0950 Trans: 01/18/23 1132 [facility] [id number] Interpreted by: WILLY ALBERTS DO Electronically signed by: WILLY ALBERTS DO 01/18/23 1132 Short Stay Diagnosis Discharge Diagnosis-Short Stay Admission Diagnosis chest pain Final Discharge Diagnosis Cholelithiasis s/p lap jasiel Conclusion Plan Chest pain Likely non cardiac in origin Cardiology consulted EKG, Troponin and echo did not reveal cardiac etiology of pain Fam hx of CAD in father Dr Yanes wants to consider stress test as an outpatient to complete ischemic workup Cholelithiasis Evidence of stone on Gallbladder ultrasound Lap jasiel this afternoon with Dr Echavarria normal WBC and minimal elevation of AST and ALT, normal alk phos Pain control post surgery Monitor for signs of post op infection Anxiety and PTSD HLD Elevated triglycerides, total cholesterol, and LDL cholesterol Would likely benefit from statin, follow up with PCP as outpatient If cleared by general surgery patient can be discharged this evening following recovery Clinical Quality Measures AMI/AHF: ASA po Prior to arrival: JU Patrick DO 01/19/23 0533: Supervisory-Addendum Brief Verification & Attestation Participated in pt care: history, MDM, physical Personally performed: exam, history, MDM, supervision of care Care discussed with: Medical Student Procedures: n/a Results interpretation: Verified all documentation Verification and Attestation of Medical Student E/M Service A medical student performed and documented this service in my presence. I reviewed and verified all information documented by the medical student and made modifications to such information, when appropriate. I personally performed the physical exam and medical decision making. Ju Jasso, Jan 19, 2023,05:33 DEMETRA DANIELS Jan 18, 2023 14:04 JU JASSO DO Jan 19, 2023 05:33
--- NOTE | 2023-01-18 14:05 | Anesthesia-General Post-Op ---
General Patient Condition Mental Status/LOC: Same as Preop Cardiovascular: Satisfactory Nausea/Vomiting: Absent Respiratory: Satisfactory Pain: Controlled Complications: Absent Post Op Complications Complications None Follow Up Care/Instructions Patient Instructions None needed. Anesthesia/Patient Condition Patient Condition Patient is doing well, no complaints, stable vital signs, no apparent adverse anesthesia problems. No complications reported per nursing. TAY KEATING CRNA Jan 18, 2023 14:05
--- NOTE | 2023-01-18 14:05 | Discharge Inst-Simple/Standard ---
Discharge Inst-Standard Discharge Medications New, Converted or Re-Newed RX: Transmitted to Pharmacy Patient Instructions/Follow Up Plan of Care/Instructions/FU: Tammi 2 weeks Farzana 2 weeks Primary care physician 2 weeks. Activity as Tolerated: No Discharge Diet: Regular Diet Other Inst to Patient Follow up Appt: Make appointment for 2 weeks with Farzana Spaulding and your primary care physician. Instructions: No lifting greater than 10 pounds. No strenuous activity. May shower in 24 hours, no tub bath or soaking. Use incentive spirometer at home as directed. No Smoking Skin/Wound Care: You have special glue over incision, it will fall off on it's own. Symptoms to Report: Appetite Changes, Extremity Discoloration, Numbness/Tingling, Swelling Increased, Bleeding Excessive, Eyesight Changes, Pain Increased, Urine Color Change, Constipation(Persistent), Fever over 101 degree F, Pain/Pressure in chest, Urinating Difficulty, Cough Up/Vomit Blood, Heart Beat Irreg/Pounding, Pain/Pressure in jaw, Vaginal Bleeding Increase, Cramps in feet or legs, Lightheadedness, Pain/Pressure in shoulder, Diarrhea(Persistent), Memory Changes Suddenly, Questions/Concerns, Weight gain consecutive days, Dizziness/Fainting, Nausea/Vomiting, Shortness of Breath, Weight gain over 2 pounds. If eyes or skin turn yellow notify physician. If questions or concerns contact your physician Or seek help at emergency department. NEL ECHAVARRIA DO Jan 18, 2023 14:05
[2023-01-18] MEDS ORDERED: ONDANSETRON 4 MG/2 ML (SDV) Z0FRAN IVP PRN (14:15)
[2023-01-18] MEDS ORDERED: fentaNYL INJ 100 MCG/2 ML AMP IVP ONE (14:15)
[2023-01-18] MEDS ORDERED: HYDROmorphone 2 MG/ML VIAL (DILAUDID) IV ONE (14:15)
[2023-01-18] MEDS: DOCUSATE SODIUM 100 MG (COLACE) CAP PO SCH (15:31)
--- NOTE | 2023-01-18 17:23 | Diagnostic Imaging Report ---
FLUOROSCOPY UP TO 1 HOUR INDICATION: LAP YOLI WITH CHOLANGIOGRAMS IN OR. COMPARISON: None. FINDINGS/ IMPRESSION: Portable intra-operative radiograph obtained at laparoscopic cholecystectomy, for localization purposes and during cholangiogram. Preliminary film is unremarkable. Cholangiogram shows filling of the common bile duct with free flow into the duodenum. No filling defect is seen. Please see operative note for full details regarding real-time findings. Fluoroscopy time 9.9 seconds. Dose 7.6 mGy Dictated by: Dictated on workstation # [id number]
== END 2023-01-18 16:35 | disposition home or self-care (01) ==
LOC: EDUNIT# 07:41 → ER FS 07:42 → UNDOADMOB 12:15 → 4TH 12:15 → SDC 12:15 → 4TH 12:15 → SDC 01-18 16:35 → UNDODISOB 01-18 16:35
PROVIDERS: ATTEND Internal Medicine
DX: K80.10 Calculus of gallbladder with chronic cholecystitis without obstruction (principal); F41.9 Anxiety disorder, unspecified; E78.5 Hyperlipidemia, unspecified; F43.10 Post-traumatic stress disorder, unspecified; R07.81 Pleurodynia; Z28.310 Unvaccinated for COVID-19; Z87.891 Personal history of nicotine dependence; Z82.49 Family history of ischemic heart disease and other diseases of the circulatory system
CPT/HCPCS: 36415; 47563; 71045; 71275; 76000; 76705; 80053 ×2; 80061; 83690; 83735; 83874; 83880; 84484; 85025 ×2; 85379; 85610; 85730; 88304; 93005 ×2; 93041; 96361 ×2; 96372; 96374; 96375 ×2; 96376 ×2; 99284; C8929; 93306; Q9967

== ENCOUNTER 2023-06-30 04:27 | Emergency (ER) | payer MEDICAID ==
[~2023-06-30] VITALS: Ht 193 cm; Wt 120.5 kg
[~2023-06-30 04:27] MED LIST changes: +ACHD5005 PO; +DOCU-143 PO; +IBUP-2185 PO; +SILD100T PO
[2023-06-30] MEDS ORDERED: fentaNYL INJECTION 100 MCG/2 ML VIAL IM STA (04:55)
--- NOTE | 2023-06-30 04:57 | ED Back Pain ---
General Chief Complaint: Back Problems Stated Complaint: RIGHT LEG NUMB| SEVERE PAIN Nursing Triage Note: Patient arrival to ED per POV ambulating to ED Overflow Room with severe sciatica pain radiation into R leg. Pt began sx last Sun 06/23 and worsening. Pt tried an Chiropractor adjustment 06/28 then saw [facility] later for continued pain worsening. Pt is on Prednisone and a Muscle Relaxant. Pt used Ibuprofen 800 mg and a muscle relaxant 1 hr ago. Pt has severe pain and some R leg numbness. Source of Information: Patient, Spouse (PIYUSH REYES MD) History of Present Illness Date Seen by Provider: Jun 30, 2023 Time Seen by Provider: 04:32 Initial Comments 48 yo male presenting with complaints of severe low back pain with radiation down his right leg. He is having numbness as well as pain into his right leg. He feels like it is a flareup of his sciatica but is more severe than any previous episodes that he has had. 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 He states that no one has done any imaging of his back or spine. He has seen a chiropractor on and had an adjustment without any improvement. On Saturday he had gone through urgent care and had a steroid as well as muscle relaxer prescribed. He denies any acute trauma or new injury to exacerbate his back pain and sciatica. He had no loss of bowel or bladder control. He reports that the majority of his pain is just above his hip bone from the middle of the spine out to the right side. He does have some over the SI joint as well. He took a muscle relaxer as well as 800 mg of ibuprofen approximately an hour prior to arrival. Location: Lumbar Spine, Paraspinous Muscles Timing/Duration: 5-6 Days Severity: Severe Pain/Injury Location: Back, Lower Extremity (Right leg) Radiation: Buttocks, Feet, Lower Legs, Upper Legs Method of Injury: Unknown Modifying Factors: Worse With Movement Associated Symptoms: muscle spasms; No fever, No weakness; numbness in le gs/feet, tingling in legs/feet, lower back pain; No loss of bladder control, No loss of bowel control (PIYUSH REYES MD) Allergies and Home Medications Allergies Coded Allergies: zolpidem (Verified Allergy, Unknown, 2/23/23) Patient Home Medication List Home Medication List Reviewed: Yes (PIYUSH REYES MD) Cyclobenzaprine HCl (Cyclobenzaprine HCl) 10 Mg Tablet, 10 MG PO Q8H PRN for SPASMS, (Reported) Entered as Reported by: JOHNNIE KRAMER on 06/30/23508 Last Action: New Order Prednisone (Prednisone) 20 Mg Tab, 40 MG PO DAILY, (Reported) Entered as Reported by: JOHNNIE KRAMER on 06/30/23508 Last Action: New Order Sildenafil Citrate (Viagra) 100 Mg Tablet, 100 MG PO UD PRN for ED, (Reported) Entered as Reported by: KARLO DUPREE on 01/17/231545 [Cholestyramine] , (Reported) Entered as Reported by: JOHNNIE KRAMER on 06/30/23517 Last Action: New Order [Rosuvastatin] , (Reported) Entered as Reported by: JOHNNIE KRAMER on 06/30/23517 Last Action: New Order Discontinued Medications Docusate Sodium (Colace) 100 Mg Capsule, 100 MG PO BID Discontinued Reason: Referral/FU Appt-Addtl Prescribed by: NEL ECHAVARRIA on 01/18/231401 Last Action: Discontinued Hydrocodone/Acetaminophen (Hydrocodone-Acetamin 5-325 mg) 5 Mg-325 Mg Tablet, 1 EACH PO Q4H PRN for PAIN-MODERATE (5-7) Discontinued Reason: Referral/FU Appt-Addtl Prescribed by: NEL ECHAVARRIA on 01/18/231401 Last Action: Discontinued Review of Systems Constitutional: No chills, No fever EENTM: no symptoms reported Respiratory: no symptoms reported Cardiovascular: no symptoms reported Gastrointestinal: no symptoms reported Genitourinary: no symptoms reported Musculoskeletal: see HPI Skin: No change in color, No rash Psychiatric/Neurological: See HPI; Denies Headache (PIYUSH REYES MD) Past Kpnwfqf-Ngplmq-Jajffr Hx Immunizations Up To Date First/Initial COVID19 Vaccinat: Denies (PIYUSH REYES MD) Seasonal Allergies Seasonal Allergies: Yes (PIYUSH REYES MD) Past Medical History Surgery/Hospitalization HX: COLONOSCOPY ; TONSILECTOMY, PTSD, cholecystectomy Surgeries: Yes (sebaceous cyst from back) Tonsillectomy Respiratory: No Currently Using CPAP: No Currently Using BIPAP: No Cardiac: No Neurological: No Genitourinary: No Gastrointestinal: No Musculoskeletal: No Endocrine: No HEENT: No Cancer: No Psychosocial: Yes PTSD Integumentary: No Blood Disorders: No (PIYUSH REYES MD) Family Medical History No Pertinent Family Hx CAD in father and multiple uncles (PIYUSH REYES MD) Physical Exam Vital Signs Vital Signs - First Documented 06/30/23 04:30 Temp 36.1 Pulse 109 Resp 20 B/P (MAP) 150/93 (112) Pulse Ox 98 O2 Delivery Room Air (VEE BRENNER MD) Vital Signs Capillary Refill : Less Than 3 Seconds (PIYUSH REYES MD) Height, Weight, BMI Height: 6'4.00" Weight: 289lbs. oz. 131.662714kf; 32.00 BMI Method:Stated General Appearance: WD/WN, Mild Distress Cardiovascular: Regular Rate, Rhythm, Normal Peripheral Pulses Respiratory: Chest Non Tender, Lungs Clear, Normal Breath Sounds Back: No CVA Tenderness, Muscle Spasm (Muscle spasms and pain to the right para spinal muscles and down to the SI joint.); No Vertebral Tenderness Extremity: Normal Capillary Refill, No Calf Tenderness, No Pedal Edema, Other (Back pain with straight leg raise on the right side) Neurologic/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, Oriented x3, train inspector II-XII Norm as Tested Skin: Normal Color, Warm/Dry (PIYUSH REYES MD) Progress/Results/Core Measures Results/Orders My Orders Orders - VEE BRENNER MD Hydrocodone/Apap 5/325 Tablet (Hydrocod (06/30/23 07:30) Gabapentin Capsule/Tablet (Neurontin Cap (06/30/23 07:30) (VEE BRENNER MD) Medications Given in ED Current Medications Medications Dose Ordered Sig/Goran Route Start Time Stop Time Status Last Admin Dose Admin Fentanyl Citrate 100 mcg ONCE ONCE IM 06/30/23 05:00 06/30/23 05:01 DC 06/30/23 05:03 100 MCG (VEE BRENNER MD) Vital Signs/I&O 06/30/23 04:30 Temp 36.1 Pulse 109 Resp 20 B/P (MAP) 150/93 (112) Pulse Ox 98 O2 Delivery Room Air (VEE BRENNER MD) Blood Pressure Mean: 112 Progress Progress Note #1: Progress Note Potential diagnosis of sciatica, bulging disc, compression fracture, muscle strain. Since he is already taken steroid, ibuprofen, muscle relaxer the only thing I have left out for is a narcotic pain medicine. We will administer fentanyl 100 mcg IM x1 and order CT scan of the lumbar spine and the pelvis to look for acute pathology. Progress Note #2: Time: 05:31 Progress Note On my personal review of CT lumbar spine and pelvis without contrast I felt there was degenerative changes and possibly a bulging to the discs at the L4-5 and L5-S1 level. Waiting on radiology report. 0627 Patient reported minimal change in pain from over 10 to 8 or 9 now after the Fentanyl 100 mcg. 0700 I received a call from radiologist and he advised there are not fractures but he has degenerative changes and most severe at L4-5 with moderate central cord stenosis and neuroforaminal stenosis. Care passed to Dr. Brenner at shift change to determine disposition of the patient. (PIYUSH REYES MD) Progress Note : Progress Note Received the patient in signout pending the CT read. The formal read never came through on the system, however we were able to discuss with the radiologist who mentioned there are just degenerative changes and nothing acute. Pain came back after the fentanyl, given hydrocodone and gabapentin here. We will send him a prescription for gabapentin and lidocaine patch as well. He should follow-up with orthopedics as an outpatient. He otherwise has no red flags and has been ambulating without any issue. (VEE BRENNER MD) Diagnostic Imaging Diagonstic Imaging: CT Plain Films/CT/US/NM/MRI: pelvis (And lumbar spine) Reviewed: Reviewed by Me (PIYUSH REYES MD) Departure Impression Primary Impression: Acute low back pain with right-sided sciatica Qualified Codes: M54.41 - Lumbago with sciatica, right side Additional Impressions: Degenerative disc disease, lumbar Bulging of lumbar intervertebral disc Disposition: 01 HOME, SELF-CARE Condition: Stable Departure-Patient Inst. Decision time for Depature: 07:30 (VEE BRENNER MD) Referrals: SELF,HARRISON SAENZ (PCP/Family) Primary Care Physician Patient Instructions: Degenerative Disc Disease ED, Herniated Disc (DC), Low Back Pain ED, Sciatica ED Add. Discharge Instructions: There are degenerative changes in your lower back which is expected with your age. You likely do have a bulging disc which typically gets better in a couple weeks by itself. Please follow-up with Phani Adams here in [facility], and you may need an appointment with a pain specialist that can do injections as well. We also recommend formal physical therapy. Prescriptions were sent to your pharmacy to try to help with pain as well on top of what you are already taking. Scripts Lidocaine (Lidocaine 5% Patch) 5 % Adh..patch 1 EACH TP Q12H PRN for Neuropathic pain MDD 2 for 14 Days, #28 PATCH 2 patches max for 12 hours, then 12 hours patch-free period. Prov: VEE BRENNER MD 06/30/23 Gabapentin (Gabapentin) 100 Mg Capsule 300 MG PO Q8H for Neuropathic pain for 14 Days, #126 CAP Prov: VEE BRENNER MD 06/30/23 Work/School Note: Family Work Note, Patient Received Medical Care In the Emergency Department On: Jun 30, 2023 Patient Will Be Able to Return to Work/School On: Jul 01, 2023 Work Release Form Date Seen in the Emergency Department: Jun 30, 2023 Return to Work: Jul 01, 2023 Restrictions: No Restrictions Images Torso/Trunk 1 - Severe, Muscle Spams, Tenderness (Pain and muscle spasms to the right paraspinal muscles out over his iliac crest from the lumbar spine over and tender over the right SI joint.) (PIYUSH REYES MD) PIYUSH REYES MD Jun 30, 2023 04:57 VEE BRENNER MD Jun 30, 2023 07:26
[2023-06-30] MEDS ORDERED: fentaNYL INJECTION 100 MCG/2 ML VIAL IM ONE (05:00)
[2023-06-30] MEDS ORDERED: CYCL10TA25 PO (05:09)
[2023-06-30] MEDS ORDERED: PRD20T PO (05:09)
[2023-06-30] MEDS ORDERED: Cholestyramine (05:18)
[2023-06-30] MEDS ORDERED: Rosuvastatin (05:18)
[2023-06-30] MEDS ORDERED: GABA-486 PO (07:26)
[2023-06-30] MEDS ORDERED: LIDO700A45 TP (07:26)
[2023-06-30 07:29] VITALS: BP 150/93
[2023-06-30] MEDS ORDERED: GABAPENTIN 100 MG CAPSULE PO ONE (07:30)
[2023-06-30] MEDS ORDERED: HYDROcodone/ACETAMINOPHEN 5 MG/325 MG TABLET PO ONE (07:30)
--- NOTE | 2023-06-30 07:44 | Diagnostic Imaging Report ---
CLINICAL INDICATION: Patient with low back pain on the right side with radiculopathy of the right lower extremity. EXAMS: 1: CT scan of the lumbar spine performed without IV contrast. Sagittal and coronal reformatted images were created. Auto Exposure Controls were utilized during the CT exam to meet ALARA standards for radiation dose reduction. 2: CT scan of the pelvis without contrast. Sagittal and coronal reformatted images were created. Auto Exposure Controls were utilized during the CT exam to meet ALARA standards for radiation dose reduction. COMPARISON: None. FINDINGS: CT LUMBAR SPINE: There is no acute lumbar spine fracture or dislocation. There are mild to moderately hypertrophic spurs anteriorly involving the lumbar spine. There is no lumbar spine facet arthropathy. There is no significant paraspinal soft tissue abnormality. L1-L2: There is no significant central canal or neural foraminal narrowing. L2-L3: There is a diffuse disk bulge with mild bilateral facet arthropathy. There is minimal central canal narrowing. There is no significant neural foraminal narrowing. L3-L4: There is mild diffuse disk bulge with no significant neural foraminal narrowing. There is no significant central canal narrowing. L4-L5: There is a diffuse disk bulge with mild to moderate loss of disk space height. There is mild bilateral facet arthropathy. There is at least moderate central canal stenosis and moderate bilateral neural foraminal narrowing. L5-S1: There is a mild diffuse disk bulge. There is mild bilateral facet arthropathy. There is no significant central canal or neural foraminal narrowing. CT PELVIS: There is no acute fracture or dislocation. There are mildly hypertrophic spurs involving the bilateral acetabular regions and bilateral proximal femoral head/neck junction regions. There is mild sclerosis of the bilateral sacroiliac joints. There is bony fusion of the left SI joint with spurring. There is a small fat-containing right inguinal hernia. Otherwise, there is no significant intrapelvic or extrapelvic soft tissue abnormality. CT OF THE LUMBAR SPINE AND PELVIS IMPRESSION: CT LUMBAR SPINE: 1: There is no acute fracture or dislocation. 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 CT PELVIS: 1: There is no acute fracture or dislocation. 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 3: There is fusion of the left SI joint. Dictated by: Dictated on workstation # [id number]
== END 2023-06-30 07:29 | disposition home or self-care (01) ==
LOC: EDUNIT# 04:27 → ER FS 04:29
DX: M54.41 Lumbago with sciatica, right side (principal); M51.36 Other intervertebral disc degeneration, lumbar region; Z28.310 Unvaccinated for COVID-19
CPT/HCPCS: 72131; 72192